=== PATIENT | female | born 1960 | race African-American/Black ===

== ENCOUNTER 2016-10-17 20:08 | Emergency (ER) | payer MEDICAID ==
[~2016-10-17] VITALS: Ht 160 cm; Wt 85.0 kg
[~2016-10-17 20:08] MED LIST: AMLO5TAB2 PO; AUGM875T PO; LIPI40TA PO; OXYC-395 PO; VENTAER INH
[2016-10-17 20:11] VITALS: BP 158/92; PULSE 95; RESP 16; TEMP 98.2; O2SAT 86
[2016-10-17] MEDS ORDERED: SODIUM CHLOR 0.9% 1000 ML INJ 1,000 ML IV SCH (20:21)
[2016-10-17] MEDS ORDERED: ONDANSETRON HCL 4 MG/2 ML VIAL IVP ONE (20:30)
[2016-10-17] MEDS ORDERED: MORPHINE SULFATE 4 MG/ML INJ IV PUSH ONE (20:30)
--- NOTE | 2016-10-17 20:48 | PD ---
HPI Chief Complaint: Abdominal Pain Time Seen by Provider: 20:45 Travel History International Travel<30 days: No Contact w/Intl Traveler<30days: No Traveled to known affect area: No History of Present Illness HPI 56-year-old female that presents to the ED for evaluation of left abdominal pain. Patient reports that she's had this for 2 days. Per patient yesterday sternum and lower abdomen any movement to the left mid flank. Per patient it severe. Per patient the pain is 8 out of 10. She denies any nausea or vomiting. She denies any bowel movement or urinary issues. She does tell me that she does have a significant history of diverticulitis with abscess in the past for which the doctor eventually wanted to do a resection but she apparently refused that she was managed medically. Per patient she has had no fevers chills or sweats. No chest pain or shortness of breath. Per patient she is concerned that she did ate some oranges recently and she believes that she got bit of all the seeds but now she is concerned that she might have not and this is the cause of her pain. She denies any numbness, tilling, weakness. She has not seen anybody for this. No recent travel. No blood thinners. No bleeding. PFSH Past Medical History Hx Anticoagulant Therapy: Yes (PT STATES SHE TAKES ASPIRIN "SOMETIMES") Arthritis: Yes Asthma: Yes Autoimmune Disease: No Blood Disorders: No Heart Rhythm Problems: No Cancer: Yes (UTERUS) Cardiovascular Problems: Yes (HI) High Cholesterol: Yes Chemotherapy: No Chest Pain: Yes Congestive Heart Failure: Yes COPD: Yes Cerebrovascular Accident: No Diabetes: No Diminished Hearing: No Endocrine: No Gastrointestinal Disorders: Yes GERD: No Glaucoma: No Genitourinary: Yes (KIDNEY STONES) Hepatitis: No Hiatal Hernia: No Hypertension: Yes Immune Disorder: No Kidney Stones: Yes Musculoskeletal: Yes Neurologic: Yes Psychiatric: No Reproductive: Yes (HYSTERECTOMY W/ LEFT OOPHERECTOMY) Respiratory: Yes (COPD) Immunizations Current: Yes Myocardial Infarction: Yes (2003) Radiation Therapy: No Sickle Cell Disease: No Sleep Apnea: No Thyroid Disease: No Ulcer: No Tetanus Vaccination: < 5 Years Menopausal: Yes Past Surgical History Abdominal Surgery: Yes (GALLBLADDER REMOVED) AICD: No Cardiac Surgery: No Cholecystectomy: Yes Ear Surgery: No Endocrine Surgery: No Eye Surgery: No Genitourinary Surgery: Yes (LITHOTRIPSY) Gynecologic Surgery: Yes (PARTIAL HYSTERECTOMY W/ LEFT OOPHERECTOMY) Hysterectomy: Yes (PARTIAL ) Neurologic Surgery: No Oral Surgery: No Pacemaker: No Thoracic Surgery: No Other Surgery: Yes Social History Alcohol Use: Yes (OCASSIONALLY) Tobacco Use: Yes (1PPD) Substance Use: No Allergies-Medications (Allergen,Severity, Reaction): Coded Allergies: Ibuprofen (Verified Allergy, Unknown, rash, 10/17/16) Reported Meds & Prescriptions Reported Meds & Active Scripts Active Lortab (Hydrocodone-Acetaminophen) 5-325 Mg Tab 1 Tab PO Q6H PRN Zofran (Ondansetron HCl) 4 Mg Tab 4 Mg PO Q6HR PRN Flagyl (Metronidazole) 500 Mg Tab 500 Mg PO TID 10 Days Cipro (Ciprofloxacin HCl) 500 Mg Tab 500 Mg PO BID 10 Days Reported Oxycodone (Oxycodone HCl) 10 Mg Tab 10 Mg PO Q4H PRN Lipitor (Atorvastatin Calcium) 40 Mg Tab 40 Mg PO HS Amlodipine (Amlodipine Besylate) 5 Mg Tab 5 Mg PO DAILY Ventolin Hfa 18 GM Inh (Albuterol Sulfate) 90 Mcg/Act Aer 2 Puff INH Q4H PRN Review of Systems Except as stated in HPI: all other systems reviewed are Neg Physical Exam Narrative GENERAL: SKIN: Warm and dry. HEAD: Atraumatic. Normocephalic. EYES: Pupils equal and round. No scleral icterus. No injection or drainage. ENT: No nasal bleeding or discharge. Mucous membranes pink and moist. Tongue is midline. No uvula deviation. NECK: Trachea midline. No JVD. CARDIOVASCULAR: Regular rate and rhythm. RESPIRATORY: No accessory muscle use. Clear to auscultation. Breath sounds equal bilaterally. GASTROINTESTINAL: Abdomen soft, patient has reproducible pain on the left lower quadrant of the abdomen, nondistended. Hepatic and splenic margins not palpable. MUSCULOSKELETAL: Extremities without clubbing, cyanosis, or edema. No obvious deformities. NEUROLOGICAL: Awake and alert. No obvious cranial nerve deficits. Motor grossly within normal limits. Five out of 5 muscle strength in the arms and legs. Normal speech. PSYCHIATRIC: Appropriate mood and affect; insight and judgment normal. Data Data Last Documented VS Vital Signs Date Time Temp Pulse Resp B/P Pulse Ox O2 Delivery O2 Flow Rate FiO2 10/17/16 20:32 16 10/17/16 20:11 98.2 95 158/92 86 Room Air Orders Complete Blood Count With Diff (10/17/16 20:21) Comprehensive Metabolic Panel (10/17/16 20:21) Lipase (10/17/16 20:21) Lactic Acid (10/17/16 20:21) Prothrombin Time / Inr (Pt) (10/17/16 20:21) Act Partial Throm Time (Ptt) (10/17/16 20:21) Urinalysis - C+S If Indicated (10/17/16 20:21) Ct Abd/Pel W Iv Contrast(Rout) (10/17/16 20:21) Iv Access Insert/Monitor (10/17/16 20:21) Morphine Inj (Morphine Inj) (10/17/16 20:30) Ondansetron Inj (Zofran Inj) (10/17/16 20:30) Sodium Chlor 0.9% 1000 Ml Inj (Ns 1000 M (10/17/16 20:21) Iohexol 350 Inj (Omnipaque 350 Inj) (10/17/16 21:34) Metronidazole 500 Mg Inj (Flagyl 500 Mg (10/17/16 22:15) Ciprofloxacin 200 Mg Premix (Cipro 200 M (10/17/16 22:15) Labs Laboratory Tests Test 10/17/16 20:40 White Blood Count 8.5 TH/MM3 Red Blood Count 4.95 MIL/MM3 Hemoglobin 15.2 GM/DL Hematocrit 44.7 % Mean Corpuscular Volume 90.4 FL Mean Corpuscular Hemoglobin 30.8 PG Mean Corpuscular Hemoglobin 34.1 % Concent Red Cell Distribution Width 14.8 % Platelet Count 263 TH/MM3 Mean Platelet Volume 9.3 FL Neutrophils (%) (Auto) 69.1 % Lymphocytes (%) (Auto) 21.3 % Monocytes (%) (Auto) 8.5 % Eosinophils (%) (Auto) 0.3 % Basophils (%) (Auto) 0.8 % Neutrophils # (Auto) 5.9 TH/MM3 Lymphocytes # (Auto) 1.8 TH/MM3 Monocytes # (Auto) 0.7 TH/MM3 Eosinophils # (Auto) 0.0 TH/MM3 Basophils # (Auto) 0.1 TH/MM3 CBC Comment DIFF FINAL Differential Comment Prothrombin Time 10.7 SEC Prothromb Time International 1.0 RATIO Ratio Activated Partial 25.4 SEC Thromboplast Time Sodium Level 137 MEQ/L Potassium Level 4.1 MEQ/L Chloride Level 104 MEQ/L Carbon Dioxide Level 27.0 MEQ/L Anion Gap 6 MEQ/L Blood Urea Nitrogen 23 MG/DL Creatinine 1.36 MG/DL Estimat Glomerular Filtration 48 ML/MIN Rate Random Glucose 107 MG/DL Lactic Acid Level 1.3 mmol/L Calcium Level 8.6 MG/DL Total Bilirubin 0.3 MG/DL Aspartate Amino Transf 12 U/L (AST/SGOT) Alanine Aminotransferase 27 U/L (ALT/SGPT) Alkaline Phosphatase 94 U/L Total Protein 8.3 GM/DL Albumin 3.9 GM/DL Lipase 150 U/L MDM Medical Decision Making Medical Screen Exam Complete: Yes Emergency Medical Condition: Yes Medical Record Reviewed: Yes Interpretation(s) CBC & BMP Diagram 10/17/16 20:40 Differential Diagnosis Abdominal pain versus diverticulitis versus abscess versus perforation versus pancreatitis versus acute abdomen Narrative Course 48-year-old female that presents to the ED for evaluation of abdominal pain. Patient was properly examined and was found to have signs and symptoms consistent appears to be abdominal pain. Concerning for diverticulitis. Labs and imaging ordered. Patient was started on IV antibiotics. Fluids given. Patient agrees first to proceed with plan. Labs and imaging showed signs of diverticulitis. Patient was reassured. No sign of abscess or perforation. Case discussed in my attending who evaluated the patient with me and agrees with plan. Patient will be given first dose of IV Cipro and Flagyl here. Patient will be sent home with prescription for Zofran, Flagyl, Cipro. Patient was given Lortab for pain. Told to follow up with PCP. See ED for any worsening symptoms. Diagnosis Primary Impression: Diverticulitis Qualified Code: K57.32 - Diverticulitis of large intestine without perforation or abscess without bleeding Patient Instructions: General Instructions, Narcotic given in the ED Additional Instructions: Take medication as prescribed. Liquid diet until better. Follow with PCP. See ED for any worsening symptoms. Med/Other Pt SpecificInfo: Prescription(s) given Scripts Hydrocodone-Acetaminophen (Lortab)5-325 Mg Tab1 Tab PO Q6H PRN (PAIN) #10 TAB Prov:Meghna Solis MD 10/17/16 Ondansetron (Zofran)4 Mg Tab4 Mg PO Q6HR PRN (NAUSEA OR VOMITING) #20 TAB Prov:Meghna Solis MD 10/17/16 Metronidazole (Flagyl)500 Mg [id number] Mg PO TID 10 Days Ref 0 Prov:Meghna Solis MD 10/17/16 Ciprofloxacin (Cipro)500 Mg [id number] Mg PO BID 10 Days Prov:Meghna Solis MD 10/17/16 Disposition: 01 DISCHARGE HOME Condition: Stable Jason Arthur Oct 17, 2016 20:48
[2016-10-17 20:49] LABS: AUTOMATED NEUTROPHIL # 5.9 TH/MM3 (1.8-7.7); BASOPHIL # 0.1 TH/MM3 (0-0.2); BASOPHIL % 0.8 % (0.0-2.0); EOSINOPHIL % 0.3 % (0.0-4.0); HEMATOCRIT 44.7 % (35.0-46.0); HEMO FLAGS DIFF FINAL; LYMPH % 21.3 % (9.0-44.0); LYMPHOCYTE # 1.8 TH/MM3 (1.0-4.8); MEAN CELL VOLUME 90.4 FL (80.0-100.0); MEAN CORPUSCULAR HEMOGLOBIN 30.8 PG (27.0-34.0); MEAN CORPUSCULAR HGB CONC 34.1 % (32.0-36.0); MONO % 8.5 % (0.0-8.0); NEUT % 69.1 % (16.0-70.0); PLATELET COUNT 263 TH/MM3 (150-450); RED BLOOD COUNT 4.95 MIL/MM3 (4.00-5.30); RED CELL DISTRIBUTION WIDTH 14.8 % (11.6-17.2); WHITE BLOOD COUNT 8.5 TH/MM3 (4.0-11.0)
[2016-10-17 21:06] LABS: APTT (PATIENT) 25.4 SEC (24.3-30.1); PROTHROMBIN TIME - PATIENT 10.7 SEC (9.8-11.6)
[2016-10-17 21:16] LABS: ANION GAP 6 MEQ/L (5-15); AST (GOT) 12 U/L (15-37); BLOOD UREA NITROGEN 23 MG/DL (7-18); CHLORIDE 104 MEQ/L (98-107); GLOMERULAR FILTRATION RATE 48 ML/MIN (>89); POTASSIUM 4.1 MEQ/L (3.5-5.1); SODIUM (NA) 137 MEQ/L (136-145)
[2016-10-17 21:19] LABS: ALKALINE PHOSPHATASE 94 U/L (45-117); ALT (GPT) 27 U/L (10-53); TOTAL BILIRUBIN ADULT 0.3 MG/DL (0.2-1.0)
[2016-10-17] MEDS ORDERED: IOHEXOL 350 MG/ML 10 ML VIAL (for RAD DIAG) IV ONE (21:34)
--- NOTE | 2016-10-17 21:52 | RADRPT ---
EXAM DATE/TIME: 10/17/2016 21:33 [facility] COMPARISON: CT ABDOMEN & PELVIS W CONTRAST, May 10, 2014, 19:06. CT ABDOMEN & PELVIS W/O CONTRAST, December 21, 2014, 17:28. INDICATIONS : Left-sided abdominal pain. IV CONTRAST: 97 cc Omnipaque 350 (iohexol) IV ORAL CONTRAST: No oral contrast ingested. RADIATION DOSE: 13.22 CTDIvol (mGy) MEDICAL HISTORY : Hypertension. Chronic obstructive pulmonary disease. Compression fracture.Uterine cancer. SURGICAL HISTORY : Hysterectomy. Cholecystectomy. ENCOUNTER: Initial ACUITY: 1 day PAIN SCALE: 0/10 LOCATION: Bilateral upper quadrant TECHNIQUE: Volumetric scanning of the abdomen and pelvis was performed. Using automated exposure control and ad justment of the mA and/or kV according to patient size, radiation dose was kept as low as reasonably achievable to obtain optimal diagnostic quality images. FINDINGS: CT Abdomen: The liver, spleen, pancreas, kidneys, are unremarkable. There is no evidence for any appr eciable pathological adenopathy, free fluid, or bowel obstruction. There is an approximate 2.2 cm mas s in the right adrenal gland and 2.9 cm mass in the left adrenal gland low attenuating. There are num erous diverticuli in the patient's descending colon with an area of acute diverticulitis in the desce nding colon just past the splenic flexure with inflammation extending to the Gerota's fascia. There i s no abscess or perforation. CT pelvis: There is no evidence for mass, abscess formation, or any significant adenopathy within the pelvis. The appendix appears intact without definite signs of appendicitis. CONCLUSION: 1. Acute diverticulitis of the descending colon. 2. Bilateral adrenal masses not significantly changed characteristic of adenomas. Lilibeth Momin MD on October 17, 2016 at 21:45 Board Certified Radiologist. This report was verified electronically.
[2016-10-17] MEDS ORDERED: ZOFR4TAB PO (22:10)
[2016-10-17] MEDS ORDERED: METR-1 PO (22:10)
[2016-10-17] MEDS ORDERED: HYDR-3533 PO (22:10)
[2016-10-17] MEDS ORDERED: CIPR-9 PO (22:10)
[2016-10-17] MEDS ORDERED: CIPROFLOXACIN 200 MG PREMIX 100 ML IV ONE (22:15)
[2016-10-17] MEDS ORDERED: metroNIDAZOLE 500 MG INJ 100 ML IV ONE (22:15)
[2016-10-17 22:29] VITALS: BP 134/81; PULSE 76; RESP 17; O2SAT 99
--- NOTE | 2016-10-17 22:42 | PD ---
Data Data Last Documented VS Vital Signs Date Time Temp Pulse Resp B/P Pulse Ox O2 Delivery O2 Flow Rate FiO2 10/17/16 22:29 76 17 134/81 99 Room Air 10/17/16 20:11 98.2 Orders Complete Blood Count With Diff (10/17/16 20:21) Comprehensive Metabolic Panel (10/17/16 20:21) Lipase (10/17/16 20:21) Lactic Acid (10/17/16 20:21) Prothrombin Time / Inr (Pt) (10/17/16 20:21) Act Partial Throm Time (Ptt) (10/17/16 20:21) Urinalysis - C+S If Indicated (10/17/16 20:21) Ct Abd/Pel W Iv Contrast(Rout) (10/17/16 20:21) Iv Access Insert/Monitor (10/17/16 20:21) Morphine Inj (Morphine Inj) (10/17/16 20:30) Ondansetron Inj (Zofran Inj) (10/17/16 20:30) Sodium Chlor 0.9% 1000 Ml Inj (Ns 1000 M (10/17/16 20:21) Iohexol 350 Inj (Omnipaque 350 Inj) (10/17/16 21:34) Metronidazole 500 Mg Inj (Flagyl 500 Mg (10/17/16 22:15) Ciprofloxacin 200 Mg Premix (Cipro 200 M (10/17/16 22:15) Labs Laboratory Tests Test 10/17/16 20:40 White Blood Count 8.5 TH/MM3 Red Blood Count 4.95 MIL/MM3 Hemoglobin 15.2 GM/DL Hematocrit 44.7 % Mean Corpuscular Volume 90.4 FL Mean Corpuscular Hemoglobin 30.8 PG Mean Corpuscular Hemoglobin 34.1 % Concent Red Cell Distribution Width 14.8 % Platelet Count 263 TH/MM3 Mean Platelet Volume 9.3 FL Neutrophils (%) (Auto) 69.1 % Lymphocytes (%) (Auto) 21.3 % Monocytes (%) (Auto) 8.5 % Eosinophils (%) (Auto) 0.3 % Basophils (%) (Auto) 0.8 % Neutrophils # (Auto) 5.9 TH/MM3 Lymphocytes # (Auto) 1.8 TH/MM3 Monocytes # (Auto) 0.7 TH/MM3 Eosinophils # (Auto) 0.0 TH/MM3 Basophils # (Auto) 0.1 TH/MM3 CBC Comment DIFF FINAL Differential Comment Prothrombin Time 10.7 SEC Prothromb Time International 1.0 RATIO Ratio Activated Partial 25.4 SEC Thromboplast Time Sodium Level 137 MEQ/L Potassium Level 4.1 MEQ/L Chloride Level 104 MEQ/L Carbon Dioxide Level 27.0 MEQ/L Anion Gap 6 MEQ/L Blood Urea Nitrogen 23 MG/DL Creatinine 1.36 MG/DL Estimat Glomerular Filtration 48 ML/MIN Rate Random Glucose 107 MG/DL Lactic Acid Level 1.3 mmol/L Calcium Level 8.6 MG/DL Total Bilirubin 0.3 MG/DL Aspartate Amino Transf 12 U/L (AST/SGOT) Alanine Aminotransferase 27 U/L (ALT/SGPT) Alkaline Phosphatase 94 U/L Total Protein 8.3 GM/DL Albumin 3.9 GM/DL Lipase 150 U/L MDM Supervised Visit with TAZ: Yes Narrative Course The history, exam, and medical decision-making in the associated midlevel provider note were completed with my assistance. I reviewed and agree with the findings presented. I attest that I had a [id number] encounter with the patient on the same day, and personally performed and documented my assessment and findings in the medical record. *My assessment and Findings: this is a 56-year-old female who has a history of diverticulitis with diverticular abscess who presents to the emergency department with left lower quadrant abdominal pain. She is nontoxic appearing, afebrile with no leukocytosis. She has a benign abdomen with some tenderness in the left lower quadrant but no guarding. CT confirms diverticulitis. Patient would prefer a trial of outpatient management with antibiotics and clear liquid diet. She promises to return if she develops new or worsening symptoms. Diagnosis Primary Impression: Diverticulitis Qualified Code: K57.32 - Diverticulitis of large intestine without perforation or abscess without bleeding Patient Instructions: General Instructions, Narcotic given in the ED Additional Instruction: Take medication as prescribed. Liquid diet until better. Follow with PCP. See ED for any worsening symptoms. Scripts Hydrocodone-Acetaminophen (Lortab)5-325 Mg Tab1 Tab PO Q6H PRN (PAIN) #10 TAB Prov:Meghna Solis MD 10/17/16 Ondansetron (Zofran)4 Mg Tab4 Mg PO Q6HR PRN (NAUSEA OR VOMITING) #20 TAB Prov:Meghna Solis MD 10/17/16 Metronidazole (Flagyl)500 Mg [id number] Mg PO TID 10 Days Ref 0 Prov:Meghna Solis MD 10/17/16 Ciprofloxacin (Cipro)500 Mg [id number] Mg PO BID 10 Days Prov:Meghna Solis MD 10/17/16 Disposition: 01 DISCHARGE HOME Condition: Stable Meghna Solis MD Oct 17, 2016 22:42
[2016-10-17 22:45] LABS: BACTERIA, URINE OCC /hpf; BLOOD, URINE NEG (NEG); COMMENT (UR) CULTURE INDICATED; CULTURE IF INDICATED CULTURE INDICATED; GLUCOSE,URINE NEG (NEG); HYALINE CAST, URINE 1 /lpf (RARE); KETONE, URINE NEG (NEG); NITRITE,URINE NEG (NEG); PH, URINE 6.5 (5.0-8.5); SQUAMOUS EPITHELIAL CELL URINE 5 /hpf (0-5); URINE COLOR LIGHT-YELLOW (YELLW/STRAW)
== END 2016-10-17 23:47 | disposition home or self-care (01) ==
LOC: NEPC 20:08
DX: K57.32 Diverticulitis of large intestine without perforation or abscess without bleeding (principal); J45.909 Unspecified asthma, uncomplicated; E78.00 Pure hypercholesterolemia, unspecified; J44.9 Chronic obstructive pulmonary disease, unspecified; I10 Essential (primary) hypertension; F17.210 Nicotine dependence, cigarettes, uncomplicated; B96.20 Unspecified Escherichia coli [E. coli] as the cause of diseases classified elsewhere
CPT/HCPCS: 74177; 80053; 81001; 83605; 83690; 85025; 85610; 85730; 87077; 87086; 87186; 96361; 96365; 96368; 96375; 99284; J0744; J2270; J2405; J7030; Q9967

== ENCOUNTER 2017-12-04 12:45 | Emergency (ER) | payer MEDICAID ==
[~2017-12-04] VITALS: Ht 160 cm; Wt 90.0 kg
[~2017-12-04 12:45] MED LIST changes: -AUGM875T PO; +CIPR-9 PO; +HYDR-3533 PO; +METR-1 PO; +ZOFR4TAB PO
[2017-12-04] MEDS ORDERED: IOHEXOL 350 MG/ML 10 ML VIAL (for RAD DIAG) IVCONTRAST ONE (12:46)
[2017-12-04 13:00] VITALS: BP 175/83; PULSE 96; RESP 24; TEMP 100.2; O2SAT 96
--- NOTE | 2017-12-04 14:31 | PD ---
HPI Chief Complaint: Respiratory Symptoms Time Seen by Provider: 13:48 Travel History International Travel<30 days: No Contact w/Intl Traveler<30days: No Traveled to known affect area: No History of Present Illness HPI The patient is a 57-year-old [place] female who presents emergency department for shortness of breath. The patient notes a three-day history of increasing shortness of breath, bilateral pleuritic pain, and dry nonproductive cough. The patient does have a history of COPD, is not currently on steroids. The patient also complains of subjective fever, chills, and sweats. She does note some right lateral and left lateral chest wall pain with inspiration, coughing, that is sharp and pleuritic. She denies any nausea, vomiting, diarrhea, or abdominal pain. She did not receive an influenza vaccination this year. She does have a history of COPD and tobacco use, last cigarette was 3 days ago. Patient has a previous history of pulmonary embolism after she had knee surgery several years ago, is not currently anticoagulated. The patient states that she had a heart attack after her pulmonary embolism, however, is unsure if she has any history congestive heart failure. PFSH Past Medical History Hx Anticoagulant Therapy: Yes (PT STATES SHE TAKES ASPIRIN "SOMETIMES") Arthritis: Yes Asthma: Yes Autoimmune Disease: No Blood Disorders: No Heart Rhythm Problems: No Cancer: Yes (UTERUS) Cardiovascular Problems: Yes High Cholesterol: Yes Chemotherapy: No Chest Pain: Yes Congestive Heart Failure: Yes COPD: Yes Cerebrovascular Accident: No Diabetes: No Diminished Hearing: No Endocrine: No Gastrointestinal Disorders: Yes GERD: No Glaucoma: No Genitourinary: Yes (KIDNEY STONES) Hepatitis: No Hiatal Hernia: No Hypertension: Yes Immune Disorder: No Kidney Stones: Yes Musculoskeletal: Yes Neurologic: Yes Psychiatric: No Reproductive: Yes (HYSTERECTOMY W/ LEFT OOPHERECTOMY) Respiratory: Yes Immunizations Current: Yes Myocardial Infarction: Yes (2003) Radiation Therapy: No Sickle Cell Disease: No Sleep Apnea: No Thyroid Disease: No Ulcer: No ?: Not Menopausal: Yes Past Surgical History Abdominal Surgery: Yes (GALLBLADDER REMOVED) AICD: No Cardiac Surgery: No Cholecystectomy: Yes Ear Surgery: No Endocrine Surgery: No Eye Surgery: No Genitourinary Surgery: Yes (LITHOTRIPSY) Gynecologic Surgery: Yes (PARTIAL HYSTERECTOMY W/ LEFT OOPHERECTOMY) Hysterectomy: Yes (PARTIAL ) Neurologic Surgery: No Oral Surgery: No Pacemaker: No Thoracic Surgery: No Other Surgery: Yes Social History Alcohol Use: Yes (OCASSIONALLY) Tobacco Use: Yes (1PPD) Substance Use: No Allergies-Medications (Allergen,Severity, Reaction): Coded Allergies: ibuprofen (Unverified Allergy, Unknown, rash, 05/05/17) Reported Meds & Prescriptions Reported Meds & Active Scripts Active Lortab (Hydrocodone-Acetaminophen) 5-325 Mg Tab 1 Tab PO Q6H PRN Zofran (Ondansetron HCl) 4 Mg Tab 4 Mg PO Q6HR PRN Flagyl (Metronidazole) 500 Mg Tab 500 Mg PO TID 10 Days Cipro (Ciprofloxacin HCl) 500 Mg Tab 500 Mg PO BID 10 Days Reported Oxycodone (Oxycodone HCl) 10 Mg Tab 10 Mg PO Q4H PRN Lipitor (Atorvastatin Calcium) 40 Mg Tab 40 Mg PO HS Amlodipine (Amlodipine Besylate) 5 Mg Tab 5 Mg PO DAILY Ventolin Hfa 18 GM Inh (Albuterol Sulfate) 90 Mcg/Act Aer 2 Puff INH Q4H PRN Review of Systems Except as stated in HPI: all other systems reviewed are Neg General / Constitutional: Positive: Fever, Chills HENT: No: Congestion Cardiovascular: Positive: Chest Pain or Discomfort Respiratory: Positive: Cough, Shortness of Breath, Pleuritic Pain Gastrointestinal: No: Nausea, Vomiting Musculoskeletal: Positive: Myalgias, Cramping Neurologic: No: Paresthesia, Sensory Disturbance Physical Exam Narrative GENERAL: Awake, alert, 57-year-old female who appears her stated age and is in no acute respiratory distress. SKIN: Focused skin assessment warm/dry. HEAD: Atraumatic. Normocephalic. Hair piece in place. EYES: No injection or drainage. ENT: No erythema noted. NECK: Trachea midline. No JVD. CARDIOVASCULAR: Regular rate and rhythm. No murmur appreciated. RESPIRATORY: No accessory muscle use. Respiratory rate of 22. Prolonged expiratory phase with no wheezes. GASTROINTESTINAL: Abdomen soft, non-tender, nondistended. No rebound tenderness. MUSCULOSKELETAL: No obvious deformities. No clubbing. No cyanosis. No edema. NEUROLOGICAL: Awake and alert. No obvious cranial nerve deficits. Motor grossly within normal limits. Normal speech. PSYCHIATRIC: Appropriate mood and affect; insight and judgment normal. Data Data Last Documented VS Vital Signs Date Time Temp Pulse Resp B/P (MAP) Pulse Ox O2 Delivery O2 Flow Rate FiO2 12/04/17 16:18 85 17 145/74 (97) 92 Room Air 12/04/17 14:36 2.00 12/04/17 13:00 100.2 Orders Orders Complete Blood Count With Diff (12/04/17 13:13) Basic Metabolic Panel (Bmp) (12/04/17 13:13) Chest, Pa & Lat (12/04/17 13:13) Blood Culture (12/04/17 13:13) Iv Access Insert/Monitor (12/04/17 13:13) Ecg Monitoring (12/04/17 13:13) Oxygen Administration (12/04/17 13:13) Oximetry (12/04/17 13:13) Electrocardiogram (12/04/17 13:13) Hepatic Functional Panel (12/04/17 14:13) B-Type Natriuretic Peptide (12/04/17 14:13) Lactic Acid (12/04/17 14:13) Influenzae A/B Antigen (12/04/17 14:13) Troponin I (12/04/17 14:13) Creatine Kinase (Cpk) (12/04/17 14:13) Ct Pulmonary Angiogram (12/04/17 ) Albuterol-Ipratropium Neb (Duoneb Neb) (12/04/17 14:45) Methylprednisolone So Succ Inj (Solumedr (12/04/17 14:45) Iohexol 350 Inj (Omnipaque 350 Inj) (12/04/17 12:46) Levofloxacin 500 Mg Premix Inj (Levaquin (12/04/17 17:30) Albuterol-Ipratropium Neb (Duoneb Neb) (12/04/17 17:30) Morphine Inj (Morphine Inj) (12/04/17 17:30) Ondansetron Inj (Zofran Inj) (12/04/17 17:30) Ed Discharge Order (12/04/17 17:23) Labs Laboratory Tests Test 12/04/17 14:40 White Blood Count 6.3 TH/MM3 Red Blood Count 4.56 MIL/MM3 Hemoglobin 14.7 GM/DL Hematocrit 41.6 % Mean Corpuscular Volume 91.2 FL Mean Corpuscular Hemoglobin 32.2 PG Mean Corpuscular Hemoglobin Concent 35.3 % Red Cell Distribution Width 14.0 % Platelet Count 226 TH/MM3 Mean Platelet Volume 9.2 FL Neutrophils (%) (Auto) 85.6 % Lymphocytes (%) (Auto) 4.8 % Monocytes (%) (Auto) 7.9 % Eosinophils (%) (Auto) 0.0 % Basophils (%) (Auto) 1.7 % Neutrophils # (Auto) 5.4 TH/MM3 Lymphocytes # (Auto) 0.3 TH/MM3 Monocytes # (Auto) 0.5 TH/MM3 Eosinophils # (Auto) 0.0 TH/MM3 Basophils # (Auto) 0.1 TH/MM3 CBC Comment DIFF FINAL Differential Comment Blood Urea Nitrogen 10 MG/DL Creatinine 0.87 MG/DL Random Glucose 99 MG/DL Calcium Level 8.5 MG/DL Sodium Level 138 MEQ/L Potassium Level 3.9 MEQ/L Chloride Level 103 MEQ/L Carbon Dioxide Level 26.3 MEQ/L Anion Gap 9 MEQ/L Estimat Glomerular Filtration Rate 81 ML/MIN Lactic Acid Level 1.7 mmol/L B-Type Natriuretic Peptide 61 PG/ML MDM Medical Decision Making Medical Screen Exam Complete: Yes Emergency Medical Condition: Yes Medical Record Reviewed: Yes Interpretation(s) EKG reveals normal sinus rhythm with a rate 88. RSR prime in V1. Last Impressions Chest X-Ray 12/04/17 1313 Signed Impressions: Service Date/Time: Monday, December 04, 2017 13:27 - CONCLUSION: 1. Mild central pulmonary vascular congestion. 2. Cardiovascular Bladimir Guerrero MD CT Angiography 12/04/17 0000 Signed Impressions: Service Date/Time: Monday, December 04, 2017 16:35 - CONCLUSION: 1. No evidence of pulmonary embolism. 2. AP window and subcarinal mediastinal as well as right hilar lymphadenopathy is noted and is nonspecific. Infectious, inflammatory and neoplastic etiologies should be considered. 3. Minimal posterior atelectatic changes bilaterally. 4. Cardiomegaly. 5. Uncomplicated colonic diverticulosis. 6. Nodule arising from the left lobe of the thyroid which is incompletely evaluated on this examination. Ultrasound would be helpful for further evaluation of this nodule. Bladimir Guerrero MD Laboratory Tests Test 12/04/17 14:40 White Blood Count 6.3 TH/MM3 Red Blood Count 4.56 MIL/MM3 Hemoglobin 14.7 GM/DL Hematocrit 41.6 % Mean Corpuscular Volume 91.2 FL Mean Corpuscular Hemoglobin 32.2 PG Mean Corpuscular Hemoglobin Concent 35.3 % Red Cell Distribution Width 14.0 % Platelet Count 226 TH/MM3 Mean Platelet Volume 9.2 FL Neutrophils (%) (Auto) 85.6 % Lymphocytes (%) (Auto) 4.8 % Monocytes (%) (Auto) 7.9 % Eosinophils (%) (Auto) 0.0 % Basophils (%) (Auto) 1.7 % Neutrophils # (Auto) 5.4 TH/MM3 Lymphocytes # (Auto) 0.3 TH/MM3 Monocytes # (Auto) 0.5 TH/MM3 Eosinophils # (Auto) 0.0 TH/MM3 Basophils # (Auto) 0.1 TH/MM3 CBC Comment DIFF FINAL Differential Comment Blood Urea Nitrogen 10 MG/DL Creatinine 0.87 MG/DL Random Glucose 99 MG/DL Calcium Level 8.5 MG/DL Sodium Level 138 MEQ/L Potassium Level 3.9 MEQ/L Chloride Level 103 MEQ/L Carbon Dioxide Level 26.3 MEQ/L Anion Gap 9 MEQ/L Estimat Glomerular Filtration Rate 81 ML/MIN Lactic Acid Level 1.7 mmol/L B-Type Natriuretic Peptide 61 PG/ML Differential Diagnosis Differential diagnosis includes pneumonia, bronchitis, COPD exacerbation, pulmonary embolism, congestive heart failure, pleural effusion, pulmonary edema , influenza, viral syndrome. Narrative Course IV was established, labs are drawn and sent, and the patient was placed on cardiac telemetry monitoring and continuous pulse oximetry monitoring. EKG was ordered and interpreted. Chest x-ray was obtained. CT pulmonary angiogram was ordered. The patient received Solu-Medrol 125 mg intravenously and duo nebs. Chest x-rays unremarkable. White count is normal. Lactic acid is normal. BNP is unremarkable. The patient complained of bodyaches over the body, influenza screen was checked, however, was negative. The patient received morphine for her pain, was administered another DuoNeb and Levaquin 500 mg intravenously. Patient appears to have COPD exacerbation with acute bronchitis and will be placed on inhaler, steroids, and Levaquin. She will be provided a copy of her CT results and lab results at discharge. She is advised to follow-up with her primary physician. Return if symptoms worsen or progress. Diagnosis Primary Impression: COPD exacerbation Additional Impressions: Bronchitis Dyspnea Qualified Codes: R06.00 - Dyspnea, unspecified Myalgia Patient Instructions: General Instructions Additional Instructions: Please provide a patient a copy of her CT results and lab results at discharge. Medications as directed. Follow-up with your primary physician. Return if symptoms worsen or progress. Med/Other Pt SpecificInfo: Prescription(s) given Scripts Albuterol 8.5 GM Inh (Proair Hfa 8.5 GM Inh) 90 Mcg/Act Aer 2 PUFF INH Q6H Y for SHORTNESS OF BREATH, #1 INHALER 0 Refills 108 mcg/actuation Prov: Cesar Eason MD 12/04/17 Levofloxacin (Levaquin) 500 Mg Tablet 500 MG PO DAILY for Infection for 7 Days, #7 TAB 0 Refills Prov: Cesar Eason MD 12/04/17 Prednisone (Prednisone) 20 Mg Tab 40 MG PO DAILY for 5 Days, #10 TAB 0 Refills Take 40 mg (2 tablets) daily for 5 days Prov: Cesar Eason MD 12/04/17 Disposition: 01 DISCHARGE HOME Condition: Stable Cesar Eason MD Dec 04, 2017 14:31
--- NOTE | 2017-12-04 14:35 | RADRPT ---
EXAM DATE/TIME: 12/04/2017 13:27 [facility] COMPARISON: No previous studies available for comparison. INDICATIONS : Chest pain. MEDICAL HISTORY : Myocardial infarction. Emphysema. SURGICAL HISTORY : None. ENCOUNTER: Initial ACUITY: 1 day PAIN SCORE: 10/10 LOCATION: Bilateral chest FINDINGS: The heart is enlarged. Mild central pulmonary vascular congestion is noted. No focal alveolar consoli dation is noted CONCLUSION: 1. Mild central pulmonary vascular congestion. 2. Cardiovascular Bladimir Guerrero MD on December 04, 2017 at 14:33 Board Certified Radiologist. This report was verified electronically.
[2017-12-04 14:36] VITALS: BP 154/76; PULSE 85; RESP 18; O2SAT 96
[2017-12-04] MEDS ORDERED: RESP: ALBUTEROL 2.5 MG/IPRATROPIUM 0.5 MG NEB (SCH) NEB ONE ×2 (14:45→17:30)
[2017-12-04] MEDS ORDERED: methylPREDNISolone SOD SUCC 125 MG/2 ML VIAL IV PUSH ONE (14:45)
[2017-12-04 15:09] LABS: AUTOMATED NEUTROPHIL # 5.4 TH/MM3 (1.8-7.7); BASOPHIL # 0.1 TH/MM3 (0-0.2); BASOPHIL % 1.7 % (0.0-2.0); HEMATOCRIT 41.6 % (35.0-46.0); HEMOGLOBIN 14.7 GM/DL (11.6-15.3); LYMPH % 4.8 % (9.0-44.0); LYMPHOCYTE # 0.3 TH/MM3 (1.0-4.8); MEAN CELL VOLUME 91.2 FL (80.0-100.0); MEAN CORPUSCULAR HEMOGLOBIN 32.2 PG (27.0-34.0); MEAN CORPUSCULAR HGB CONC 35.3 % (32.0-36.0); MEAN PLATELET VOLUME 9.2 FL (7.0-11.0); MONO % 7.9 % (0.0-8.0); MONOCYTE # 0.5 TH/MM3 (0-0.9); NEUT % 85.6 % (16.0-70.0); PLATELET COUNT 226 TH/MM3 (150-450); RED BLOOD COUNT 4.56 MIL/MM3 (4.00-5.30); WHITE BLOOD COUNT 6.3 TH/MM3 (4.0-11.0)
[2017-12-04 15:33] LABS: BICARBONATE 26.3 MEQ/L (21.0-32.0); CALCIUM 8.5 MG/DL (8.5-10.1); CREATININE 0.87 MG/DL (0.50-1.00)
[2017-12-04 16:18] VITALS: BP 145/74; PULSE 85; RESP 17; O2SAT 92
--- NOTE | 2017-12-04 16:53 | RADRPT ---
EXAM DATE/TIME: 12/04/2017 16:35 [facility] COMPARISON: CT THORAX W CONTRAST, February 01, 2010, 14:43. INDICATIONS : SOB, history past PE. Flu like symptoms. IV CONTRAST: 75 cc Omnipaque 350 (iohexol) IV RADIATION DOSE: 18.16 CTDIvol (mGy) MEDICAL HISTORY : Cardiovascular disease. Congestive heart failure. Hypertension. Uterine ca SURGICAL HISTORY : Hysterectomy. ENCOUNTER: Initial ACUITY: 1 day PAIN SCALE: 3/10 LOCATION: chest TECHNIQUE: Volumetric scanning of the chest was performed using a pulmonary embolism protocol MIP images were re constructed. Using automated exposure control and adjustment of the mA and/or kV according to patien t size, radiation dose was kept as low as reasonably achievable to obtain optimal diagnostic quality images. DICOM format image data is available electronically for review and comparison. Follow-up recommendations for detected pulmonary nodules are based at a minimum on nodule size and pa tient risk factors according to Fleischner Society Guidelines. FINDINGS: PULMONARY ARTERIES: No filling defects are seen in the pulmonary arteries through the segmental level. LUNGS: Posterior atelectatic changes are noted bilaterally. There is no consolidation or pneumothorax . No concerning pulmonary nodule is visualized. PLEURAE: There is no pleural thickening or pleural effusion. MEDIASTINUM: There is good visualization of the great vessels of the middle mediastinum. The heart is prominent in size. AP window and subcarinal mediastinal lymphadenopathy is noted. AP window lymphadenopathy measu res 1.9 x 1.3 cm and subcarinal lymphadenopathy measures 1.8 x 3.3 cm. Right hilar lymphadenopathy is also noted. Findings are nonspecific. Infectious, inflammatory and neoplastic etiologies should be c onsidered. MUSCULOSKELETAL: Within normal limits for patient age. MISCELLANEOUS: The visualized upper abdominal organs demonstrate no acute abnormality. Nodule arising from the left lobe of the thyroid extending inferiorly which is incompletely evaluated on this examination. Ultraso und of the thyroid would be helpful for further characterization. Uncomplicated colonic diverticulosi s is noted within the splenic flexure. CONCLUSION: 1. No evidence of pulmonary embolism. 2. AP window and subcarinal mediastinal as well as right hilar lymphadenopathy is noted and is nonspe cific. Infectious, inflammatory and neoplastic etiologies should be considered. 3. Minimal posterior atelectatic changes bilaterally. 4. Cardiomegaly. 5. Uncomplicated colonic diverticulosis. 6. Nodule arising from the left lobe of the thyroid which is incompletely evaluated on this examinati on. Ultrasound would be helpful for further evaluation of this nodule. Bladimir Guerrero MD on December 04, 2017 at 16:44 Board Certified Radiologist. This report was verified electronically.
[2017-12-04] MEDS ORDERED: ALBUAER3 INH (17:28)
[2017-12-04] MEDS ORDERED: PRED20 PO (17:28)
[2017-12-04] MEDS ORDERED: LEVA500T33 PO (17:28)
[2017-12-04] MEDS ORDERED: ONDANSETRON HCL 4 MG/2 ML VIAL IV PUSH ONE (17:30)
[2017-12-04] MEDS ORDERED: MORPHINE SULFATE 2 MG/ML INJ IV PUSH ONE (17:30)
[2017-12-04] MEDS ORDERED: LEVOFLOXACIN 500 MG PREMIX INJ 100 ML IV ONE (17:30)
[2017-12-04 18:19] VITALS: BP 172/86; PULSE 100; RESP 17; O2SAT 96
[2017-12-05 01:12] LABS: ALBUMIN 4.2 GM/DL (3.4-5.0); ALT (GPT) 40 U/L (10-53); AST (GOT) 32 U/L (15-37); DIRECT BILIRUBIN ADULT 0.1 MG/DL (0.0-0.2)
[2017-12-05 01:15] LABS: ALKALINE PHOSPHATASE 81 U/L (45-117); INDIRECT BILIRUBIN 0.2 MG/DL (0.0-0.8); TOTAL BILIRUBIN ADULT 0.3 MG/DL (0.2-1.0); TOTAL PROTEIN 8.2 GM/DL (6.4-8.2); TROPONIN I LESS THAN 0.02 NG/ML (0.02-0.05)
--- NOTE | 2017-12-05 16:43 | EKG ---
Date Performed: 12/04/2017 Time Performed: 14:37:32 PTAGE: 57 years EKG: Sinus rhythm POSSIBLE LEFT ATRIAL ENLARGEMENT POSSIBLE RIGHT VENTRICULAR CONDUCTION DELAY BORDERLINE ECG Compared to PREVIOUS TRACING , atrial abnormality more prominent, otherwise no significant change. [place] EVIOUS TRACIN02/01/2010 12.31 DOCTOR: Mohsen Griffiths Interpretating Date/Time 12/05/2017 16:42:27
== END 2017-12-04 19:21 | disposition home or self-care (01) ==
LOC: NEPE 12:45
DX: J44.1 Chronic obstructive pulmonary disease with (acute) exacerbation (principal); M79.1 Myalgia; I11.0 Hypertensive heart disease with heart failure; I50.9 Heart failure, unspecified; E78.00 Pure hypercholesterolemia, unspecified; F17.200 Nicotine dependence, unspecified, uncomplicated
CPT/HCPCS: 71046; 71275; 80048; 80076; 82550; 82552; 83605; 83880; 84484; 85025; 87040; 87804; 93005; 94664; 96374; 96375; 99285; J1956; J2270; J2405; J2930; Q9967

== ENCOUNTER 2018-01-26 20:45 | Emergency (ER) | payer MEDICAID | END 2018-01-27 01:29 | disposition home or self-care (01) | LOC: NEPD 01-27 01:29 | DX: M17.10 Unilateral primary osteoarthritis, unspecified knee (principal); M25.461 Effusion, right knee | CPT/HCPCS: 20610; 73564; 89060; 99284-25 ==

== ENCOUNTER 2018-02-18 20:24 | Emergency (ER) | payer MEDICAID ==
[~2018-02-18] VITALS: Ht 165.1 cm; Wt 88.0 kg
[~2018-02-18 20:24] MED LIST changes: +ALBUAER3 INH; +IBUP-232 PO; +LEVA500T33 PO; +PRED20 PO
[2018-02-18 20:57] VITALS: BP 171/84; PULSE 74; RESP 20; TEMP 98.4
[2018-02-18] MEDS ORDERED: SODIUM CHLOR 0.9% 1000 ML INJ 1,000 ML IV SCH (21:12)
[2018-02-18] MEDS ORDERED: MORPHINE SULFATE 4 MG/ML INJ IV PUSH ONE (21:15)
[2018-02-18] MEDS ORDERED: SODIUM CHLORIDE 0.9% FLUSH 10 ML FLUSH IV FLUSH PRN (21:15)
[2018-02-18] MEDS ORDERED: HYDROCORTISONE ACETATE 25 MG SUPP RECTAL SCH (21:15)
--- NOTE | 2018-02-18 21:15 | PD ---
HPI Chief Complaint: Abdominal Pain Time Seen by Provider: 21:07 Travel History International Travel<30 days: No Contact w/Intl Traveler<30days: No Traveled to known affect area: No History of Present Illness HPI 57-year-old female here for evaluation of left lower quadrant abdominal pain and rectal pain. She states that the pain has been going on for about 2-3 weeks. She has noted some bright red blood per rectum. She has been using preparation H without relief of rectal pain. Chart review shows that she has a history of diverticulitis. She complains of dysuria and suprapubic pressure as well. Left lower quadrant abdominal pain is moderate, constant, worse with movements. She denies fevers or chills. No vomiting or diarrhea. No melena. PFSH Past Medical History Hx Anticoagulant Therapy: Yes (PT STATES SHE TAKES ASPIRIN "SOMETIMES") Arthritis: Yes Asthma: Yes Autoimmune Disease: No Blood Disorders: No Heart Rhythm Problems: No Cancer: Yes (UTERUS) Cardiovascular Problems: Yes High Cholesterol: Yes Chemotherapy: No Chest Pain: Yes Congestive Heart Failure: Yes COPD: Yes Cerebrovascular Accident: No Diabetes: No Diminished Hearing: No Endocrine: No Gastrointestinal Disorders: Yes GERD: No Glaucoma: No Genitourinary: Yes (KIDNEY STONES) Hepatitis: No Hiatal Hernia: No Heparin Induced Thrombocytopen: No Hypertension: Yes Immune Disorder: No Kidney Stones: Yes Musculoskeletal: Yes Neurologic: Yes Psychiatric: No Reproductive: Yes (HYSTERECTOMY W/ LEFT OOPHERECTOMY) Respiratory: Yes Immunizations Current: Yes Myocardial Infarction: Yes (2003) Radiation Therapy: No Sickle Cell Disease: No Sleep Apnea: No Thyroid Disease: No Ulcer: No Tetanus Vaccination: < 5 Years Influenza Vaccination: Yes ?: Not Menopausal: Yes Past Surgical History Abdominal Surgery: Yes (GALLBLADDER REMOVED) AICD: No Cardiac Surgery: No Cholecystectomy: Yes Ear Surgery: No Endocrine Surgery: No Eye Surgery: No Genitourinary Surgery: Yes (LITHOTRIPSY) Gynecologic Surgery: Yes (PARTIAL HYSTERECTOMY W/ LEFT OOPHERECTOMY) Hysterectomy: Yes (partial) Neurologic Surgery: No Oral Surgery: No Pacemaker: No Thoracic Surgery: No Other Surgery: Yes Social History Alcohol Use: Yes (occasionally) Tobacco Use: Yes Substance Use: No Allergies-Medications (Allergen,Severity, Reaction): Coded Allergies: ibuprofen (Unverified Allergy, Unknown, rash, 02/18/18) Reported Meds & Prescriptions Reported Meds & Active Scripts Active Proair Hfa 8.5 GM Inh (Albuterol Sulfate) 90 Mcg/Act Aer 2 Puff INH Q6H PRN 108 mcg/actuation Reported Oxycodone (Oxycodone HCl) 10 Mg Tab 10 Mg PO Q4H PRN Lipitor (Atorvastatin Calcium) 40 Mg Tab 40 Mg PO HS Amlodipine (Amlodipine Besylate) 5 Mg Tab 5 Mg PO DAILY Ventolin Hfa 18 GM Inh (Albuterol Sulfate) 90 Mcg/Act Aer 2 Puff INH Q4H PRN Review of Systems Except as stated in HPI: all other systems reviewed are Neg Physical Exam Narrative GENERAL: Well-developed, well-nourished, sitting comfortably on stretcher, no apparent distress. SKIN: Focused skin assessment warm/dry. HEAD: Atraumatic. Normocephalic. EYES: Pupils equal and round. No scleral icterus. No injection or drainage. ENT: No nasal bleeding or discharge. Mucous membranes pink and moist. NECK: Trachea midline. No JVD. CARDIOVASCULAR: Regular rate and rhythm. No murmur appreciated. RESPIRATORY: No accessory muscle use. Clear to auscultation. Breath sounds equal bilaterally. GASTROINTESTINAL: Abdomen soft, nondistended. Mild left lower quadrant tenderness without rebound or guarding. No hernias. Normal bowel sounds. RECTUM: Exam performed in the presence of a female nurse. Left-sided external hemorrhoid that is nonthrombosed. No fissures. Heme positive brown stool. MUSCULOSKELETAL: No obvious deformities. No clubbing. No cyanosis. No edema. NEUROLOGICAL: Awake and alert. No obvious cranial nerve deficits. Motor grossly within normal limits. Normal speech. PSYCHIATRIC: Appropriate mood and affect; insight and judgment normal. Data Data Last Documented VS Vital Signs Date Time Temp Pulse Resp B/P (MAP) Pulse Ox O2 Delivery O2 Flow Rate FiO2 02/18/18 21:41 16 02/18/18 21:31 97 Room Air 02/18/18 20:57 98.4 74 171/84 (113) Orders Orders Complete Blood Count With Diff (02/18/18 21:12) Comprehensive Metabolic Panel (02/18/18 21:12) Lipase (02/18/18 21:12) Prothrombin Time / Inr (Pt) (02/18/18 21:12) Act Partial Throm Time (Ptt) (02/18/18 21:12) Urinalysis - C+S If Indicated (02/18/18 21:12) Ct Abd/Pel W Iv Contrast(Rout) (02/18/18 21:12) Iv Access Insert/Monitor (02/18/18 21:12) Ecg Monitoring (02/18/18 21:12) Oximetry (02/18/18 21:12) Morphine Inj (Morphine Inj) (02/18/18 21:15) Sodium Chlor 0.9% 1000 Ml Inj (Ns 1000 M (02/18/18 21:12) Sodium Chloride 0.9% Flush (Ns Flush) (02/18/18 21:15) Hydrocortisone Supp (Hemorrhoidal Hc Sup (02/18/18 21:15) Urine Culture (02/18/18 21:40) Iohexol 350 Inj (Omnipaque 350 Inj) (02/18/18 23:00) Ciprofloxacin (Cipro) (02/18/18 23:45) Metronidazole (Flagyl) (02/18/18 23:45) Labs Laboratory Tests Test 02/18/18 21:40 White Blood Count 5.1 TH/MM3 Red Blood Count 4.59 MIL/MM3 Hemoglobin 14.2 GM/DL Hematocrit 42.2 % Mean Corpuscular Volume 92.0 FL Mean Corpuscular Hemoglobin 30.9 PG Mean Corpuscular Hemoglobin Concent 33.6 % Red Cell Distribution Width 14.1 % Platelet Count 245 TH/MM3 Mean Platelet Volume 9.8 FL Neutrophils (%) (Auto) 53.8 % Lymphocytes (%) (Auto) 35.1 % Monocytes (%) (Auto) 9.6 % Eosinophils (%) (Auto) 0.7 % Basophils (%) (Auto) 0.8 % Neutrophils # (Auto) 2.8 TH/MM3 Lymphocytes # (Auto) 1.8 TH/MM3 Monocytes # (Auto) 0.5 TH/MM3 Eosinophils # (Auto) 0.0 TH/MM3 Basophils # (Auto) 0.0 TH/MM3 CBC Comment DIFF FINAL Differential Comment Prothrombin Time 9.7 SEC Prothromb Time International Ratio 1.0 RATIO Activated Partial Thromboplast Time 23.9 SEC Urine Color YELLOW Urine Turbidity HAZY Urine pH 5.5 Urine Specific [place] 1.014 Urine Protein NEG mg/dL Urine Glucose (UA) NEG mg/dL Urine Ketones NEG mg/dL Urine Occult Blood NEG Urine Nitrite POS Urine Bilirubin NEG Urine Urobilinogen LESS THAN 2.0 MG/DL Urine Leukocyte Esterase MOD Urine RBC 1 /hpf Urine WBC 6 /hpf Urine Squamous Epithelial Cells 2 /hpf Urine Bacteria MANY /hpf Urine Mucus FEW /lpf Microscopic Urinalysis Comment CULTURE INDICATED Blood Urea Nitrogen 16 MG/DL Creatinine 0.99 MG/DL Random Glucose 114 MG/DL Total Protein 7.7 GM/DL Albumin 3.5 GM/DL Calcium Level 8.8 MG/DL Alkaline Phosphatase 96 U/L Aspartate Amino Transf (AST/SGOT) 16 U/L Alanine Aminotransferase (ALT/SGPT) 22 U/L Total Bilirubin 0.2 MG/DL Sodium Level 141 MEQ/L Potassium Level 4.1 MEQ/L Chloride Level 107 MEQ/L Carbon Dioxide Level 25.6 MEQ/L Anion Gap 8 MEQ/L Estimat Glomerular Filtration Rate 69 ML/MIN Lipase 173 U/L MDM Medical Decision Making Medical Screen Exam Complete: Yes Emergency Medical Condition: Yes Medical Record Reviewed: Yes Differential Diagnosis Colitis, diverticulitis, UTI, cystitis, AVM, hemorrhoid Narrative Course Vital signs reviewed. CBC is unremarkable. CMP is unremarkable. UA: Many bacteria, few mucus, moderate leukocyte esterase, positive nitrites. CT abdomen pelvis: Very mild diverticulitis. The patient was made aware of all findings of a copy of her CT abdomen pelvis report. She will be started on Cipro and Flagyl for her diverticulitis as well as UTI. There are no peritoneal signs on abdominal exam and she feels well enough to be discharged home. I will give her the name of the on-call colorectal surgeon with whom she can follow-up with this week. I also advised that she follow-up with her primary care physician this week. She was advised on when to return to the emergency department. She verbalizes understanding and agreement with plan. Diagnosis Primary Impression: Sigmoid diverticulitis Additional Impressions: UTI (urinary tract infection) Qualified Codes: N30.00 - Acute cystitis without hematuria Hemorrhoid Qualified Codes: K64.9 - Unspecified hemorrhoids Referrals: Zuleyka Guerrero MD 1 week Colorectal surgeon Primary Care Physician 3 days Additional Instructions: Follow-up with your primary care physician this week. Return to the emergency department for worsening symptoms or any other concerns. Scripts Oxycodone-Acetaminophen (Percocet) 5-325 mg Tab 1 TAB PO Q6H Y for PAIN, #12 TAB 0 Refills Prov: Mariano Fuller MD 02/18/18 Metronidazole (Flagyl) 500 Mg Tab 500 MG PO BID for Infection for 10 Days, #20 TAB 0 Refills Prov: Mariano Fuller MD 02/18/18 Ciprofloxacin (Cipro) 500 Mg Tab 500 MG PO BID for Infection for 10 Days, #20 TAB 0 Refills Prov: Mariano Fuller MD 02/18/18 Disposition: 01 DISCHARGE HOME Condition: Stable Mariano Fuller MD February 18, 2018 21:15
[2018-02-18 21:31] VITALS: RESP 16; O2SAT 97
[2018-02-18 21:41] VITALS: RESP 16
[2018-02-18 22:00] LABS: AUTOMATED NEUTROPHIL # 2.8 TH/MM3 (1.8-7.7); BASOPHIL % 0.8 % (0.0-2.0); EOSINOPHIL % 0.7 % (0.0-4.0); HEMATOCRIT 42.2 % (35.0-46.0); HEMOGLOBIN 14.2 GM/DL (11.6-15.3); LYMPH % 35.1 % (9.0-44.0); LYMPHOCYTE # 1.8 TH/MM3 (1.0-4.8); MEAN CORPUSCULAR HEMOGLOBIN 30.9 PG (27.0-34.0); MEAN CORPUSCULAR HGB CONC 33.6 % (32.0-36.0); MEAN PLATELET VOLUME 9.8 FL (7.0-11.0); MONO % 9.6 % (0.0-8.0); MONOCYTE # 0.5 TH/MM3 (0-0.9); NEUT % 53.8 % (16.0-70.0); PLATELET COUNT 245 TH/MM3 (150-450); RED BLOOD COUNT 4.59 MIL/MM3 (4.00-5.30); RED CELL DISTRIBUTION WIDTH 14.1 % (11.6-17.2); WHITE BLOOD COUNT 5.1 TH/MM3 (4.0-11.0)
[2018-02-18 22:01] LABS: BACTERIA, URINE MANY /hpf; BILIRUBIN, URINE NEG (NEG); BLOOD, URINE NEG (NEG); GLUCOSE,URINE NEG (NEG); KETONE, URINE NEG (NEG); MUCUS URINE FEW /lpf (OCC); NITRITE,URINE POS (NEG); PH, URINE 5.5 (5.0-8.5); SQUAMOUS EPITHELIAL CELL URINE 2 /hpf (0-5); URINE COLOR YELLOW (YELLW/STRAW); URINE LEUKOCYTE ESTERASE MOD (NEG)
[2018-02-18 22:04] LABS: PROTHROMBIN TIME - PATIENT 9.7 SEC (9.8-11.6)
[2018-02-18 22:14] LABS: ALT (GPT) 22 U/L (10-53)
[2018-02-18 22:16] LABS: ALKALINE PHOSPHATASE 96 U/L (45-117); TOTAL BILIRUBIN ADULT 0.2 MG/DL (0.2-1.0); TOTAL PROTEIN 7.7 GM/DL (6.4-8.2)
[2018-02-18 22:20] LABS: ALBUMIN 3.5 GM/DL (3.4-5.0); AST (GOT) 16 U/L (15-37); BICARBONATE 25.6 MEQ/L (21.0-32.0); BLOOD UREA NITROGEN 16 MG/DL (7-18); CALCIUM 8.8 MG/DL (8.5-10.1); CHLORIDE 107 MEQ/L (98-107); CREATININE 0.99 MG/DL (0.50-1.00); GLOMERULAR FILTRATION RATE 69 ML/MIN (>89); GLUCOSE,RANDOM 114 MG/DL (74-106); SODIUM (NA) 141 MEQ/L (136-145)
[2018-02-18] MEDS ORDERED: IOHEXOL 350 MG/ML 10 ML VIAL (for RAD DIAG) IVCONTRAST ONE (23:00)
--- NOTE | 2018-02-18 23:24 | RADRPT ---
EXAM DATE: 02/18/2018 11:03 PM EDT AGE/SEX: 57 years / Female INDICATIONS: Left lower quadrant pain. Blood in stool. CLINICAL DATA: This is the patient's initial encounter. Patient reports that signs and symptoms have been present for 3 weeks and indicates a pain score of 7/10. MEDICAL/SURGICAL HISTORY: Congestive heart failure. Chronic obstructive pulmonary disease. Re nal calculi. Cholecystectomy. Hysterectomy. ORAL CONTRAST: No oral contrast ingested. RADIATION DOSE: 10.48 CTDI (mGy) COMPARISON: [facility] – [place], [place] ABDOMEN & PELVIS W CONTRAST, 10/17/2016. . TECHNIQUE: Multiple contiguous axial images were obtained through the abdomen and pelvis following b olus infusion of 100 ml Omnipaque 350 (iohexol) nonionic water-soluble contrast as a single exam do se. No oral contrast ingested. Using automated exposure control and adjustment of the mA and/or kV a ccording to patient size, the radiation dose was kept as low as reasonably achievable to obtain optim al diagnostic quality images. FINDINGS: Lung bases are clear. Mild fatty liver. Spleen, kidneys and pancreas demonstrate no acute findings. P revious cholecystectomy. Bilateral adrenal masses measuring 2 to 3 cm in diameter are stable since [facility] 2016. There is colonic diverticulosis with minimal inflammatory changes around the distal left sigmoid colo n characteristic of a mild diverticulitis. CONCLUSION: 1. Very mild diverticulitis around distal sigmoid colon. 2. Previous cholecystectomy. Mild fatty liver. Electronically signed by: Orlando Hinojosa MD 02/18/2018 11:23 PM EDT
[2018-02-18] MEDS ORDERED: PERC5TAB12 PO (23:34)
[2018-02-18] MEDS ORDERED: CIPR-9 PO (23:34)
[2018-02-18] MEDS ORDERED: METR-1 PO (23:34)
[2018-02-18] MEDS ORDERED: CIPROFLOXACIN 500 MG TAB PO ONE (23:45)
[2018-02-18] MEDS ORDERED: metroNIDAZOLE 500 MG TAB PO ONE (23:45)
== END 2018-02-19 00:02 | disposition home or self-care (01) ==
LOC: NEPE 20:24
DX: K57.32 Diverticulitis of large intestine without perforation or abscess without bleeding (principal); N30.00 Acute cystitis without hematuria; K64.9 Unspecified hemorrhoids; E78.00 Pure hypercholesterolemia, unspecified; I11.0 Hypertensive heart disease with heart failure; I50.9 Heart failure, unspecified; J44.9 Chronic obstructive pulmonary disease, unspecified; Z72.0 Tobacco use
CPT/HCPCS: 74177; 80053; 81001; 83690; 85025; 85610; 85730; 87077; 87086; 87186; 96361; 96374; 99285; J2270; J7030; Q9967

== ENCOUNTER 2018-06-17 20:34 | Inpatient (IN) ==
[2018-06-17] MEDS ORDERED: Morphine Inj 4 MG/ML Vial IV.PUSH ONE (23:00)
[2018-06-18 00:39] LABS: Baso % (Auto) 0.3 % (0.0-2.0); Eos % (Auto) 0.3 % (0.0-4.0); Hematocrit 43.5 % (35.0-46.0); Hemoglobin 14.4 gm/dL (11.6-15.3); Lymph # (Auto) 1.5 th/mm3 (1.0-4.8); Lymph % (Auto) 17.8 % (9.0-44.0); Mean Corpuscular Hemoglobin 31.1 pg (27.0-34.0); Mean Corpuscular Volume 94.1 fL (80.0-100.0); Mean Platelet Volume 8.7 fL (7.0-11.0); Mono # (Auto) 0.6 th/mm3 (0.0-0.9); Mono % (Auto) 7.8 % (0.0-8.0); Neut # (Auto) 6.1 th/mm3 (1.8-7.7); Neut % (Auto) 73.8 % (16.0-70.0); Platelet Count 267 th/mm3 (150-450); Red Blood Count 4.62 mil/mm3 (4.00-5.30); Red Cell Distribution Width 14.5 % (11.6-17.2); White Blood Count 8.3 th/mm3 (4.0-11.0)
[2018-06-18 00:43] LABS: Bacteria,Urine Occasional /hpf; Bilirubin,Urine Negative (Negative); Clarity,Urine Hazy (Clear); Color,Urine Yellow (Yellw/Straw); Glucose,Urine (UA) Negative (Negative); Leukocyte Esterase,Urine Negative (Negative); Mucus,Urine Few /lpf (Occasional); Nitrite,Urine Positive (Negative); Specific Gravity,Urine 1.015 (1.002-1.035); Squamous Epithelial Cell,Urine 1 /hpf (0-5)
[2018-06-18 00:54] LABS: Alanine Aminotransferase 20 U/L (10-53); Albumin 3.6 g/dL (3.4-5.0); Anion Gap 11 meq/L (5-15); Aspartate Aminotransferase 12 U/L (15-37); Blood Urea Nitrogen 12 mg/dL (7-18); Calcium 8.4 mg/dL (8.5-10.1); Carbon Dioxide 23.5 meq/L (21.0-32.0); Chloride 107 meq/L (98-107); Glomerular Filtration Rate 79 mL/min (>89); Glucose,Random 98 mg/dL (74-106); Lipase 97 U/L (73-393); Potassium 3.9 meq/L (3.5-5.1); Sodium 141 meq/L (136-145)
[2018-06-18 00:56] LABS: Alkaline Phosphatase 78 U/L (45-117); Total Protein 7.7 g/dL (6.4-8.2)
--- NOTE | 2018-06-18 01:52 | CT ---
EXAM DATE: 06/18/2018 12:00 AM EDT AGE/SEX: 58 years / Female INDICATIONS: Right side abdominal pain. CLINICAL DATA: This is the patient's initial encounter. Patient reports that signs and symptoms have been present for 3 days and indicates a pain score of 10/10. MEDICAL/SURGICAL HISTORY: Ulcerative colitis. Hypertension. Myocardial infarction. Renal bob culi. Cholecystectomy. ORAL CONTRAST: No oral contrast ingested. RADIATION DOSE: 11.02 CTDI (mGy) [place] [facility] [place]/2018. [facility] [place]/O CONTRA ST, 12/21/2014. . TECHNIQUE: Multiple contiguous axial images were obtained through the abdomen and pelvis following b olus infusion of 75 ml Omnipaque 350 (iohexol) nonionic water-soluble contrast as a single exam dos e. No oral contrast ingested. Using automated exposure control and adjustment of the mA and/or kV ac cording to patient size, radiation dose was kept as low as reasonably achievable to obtain optimal di agnostic quality images. DICOM format image data is available electronically for review and comparis on. FINDINGS: Florid diverticulosis seen of the colon, both right and left-sided. Wall thickening and severe inflam matory changes consistent with acute diverticulitis seen of the hepatic flexure/proximal transverse c olon region. No abscess, perforation or obstruction is seen. The rest of the gastrointestinal tract i s within normal limits. The appendix is well-visualized and normal. Liver measures 21 cm craniocaudal and is mild fatty infiltrated, similar to before. Spleen, pancreas and kidneys are within normal limits. Stable enlargement of both adrenal glands. Cholecystectomy young ges are again noted. CONCLUSION: 1. Severe but uncomplicated acute colonic diverticulitis of the hepatic flexure. 2. Enlarged and fatty infiltrated liver again noted. 3. Bilateral adrenal adenomas are stable. Electronically signed by: Ori Parker MD 06/18/2018 1:50 AM EDT
[2018-06-18] MEDS ORDERED: HYDROmorphone PF Inj 2 MG/ML Vial IV.PUSH PRN ×2 (02:05→04:14)
[2018-06-18] MEDS ORDERED: Piperacil/Tazo 4.5 GM Premix 4.5 GM/100 ML BAG IV.SIG ONE (02:05)
[2018-06-18] MEDS ORDERED: Morphine Inj 4 MG/ML Vial IV.PUSH PRN ×2 (04:14)
[2018-06-18] MEDS ORDERED: Naloxone Inj 0.4 MG/ML Vial IV.PUSH PRN (04:14)
[2018-06-18] MEDS ORDERED: Bisacodyl 10 MG Supp RECTAL PRN (04:17)
[2018-06-18] MEDS ORDERED: Promethazine 25 MG Supp RECTAL PRN (04:17)
--- NOTE | 2018-06-18 04:23 | ED ---
HPI General Chief Complaint: Abdominal Pain Stated Complaint: rt flank pain Time Seen by Provider: 06/17/18 22:49 History of Present Illness HPI narrative: Abdominal pain 58-year-old woman with past history of recurrent episodes of diverticulitis, latest January 2018, presents with development of severe abdominal pain similar to prior episodes, but with pain now located in the right upper quadrant of the abdomen. Pain is constant, severe, rates 10 out of 10, aching, throbbing, sometimes stabbing, with radiation about the abdomen, and sometimes toward the back, particularly on the right side. She has had some questionable feverishness, but has not checked her temperature at home. She has not had vomiting, and has been having bowel movements, with no passage of blood, and no melanotic stool. She has no difficulty with urination. Patient has been treated with oral antibiotics previously, as well as pain medication, but has not seen a surgeon that she is aware of for specialty consultation. Past medical history and chart review shows multiple visits for recurrent episodes abdominal pain, past diagnoses of diverticulitis, prior myocardial infarction but no surgeries, tobacco abuse, cigarettes, COPD, past history of uterine fibroids, chronic pain syndrome with lower back pain. Related Data Home Medications Medication Instructions Recorded Confirmed amlodipine 5 mg PO DAILY 04/01/18 06/18/18 fluticasone [Flovent HFA] 2 inh INHALATION BID 04/01/18 06/18/18 hydrocodone-acetaminophen 1 tab PO Q6H PRN 04/01/18 06/18/18 Allergies Allergy/AdvReac Type Severity Reaction Status Date / Time ibuprofen Allergy Unknown rash Verified 06/17/18 22:16 Review of Systems ROS: all other systems reviewed are negative Constitutional Reports chills, Reports fatigue, Reports fever(s) and Reports malaise Cardiovascular Denies chest pain and Denies dyspnea Respiratory Denies chest congestion, Denies cough and Denies dyspnea Gastrointestinal Reports as per HPI, Reports abdominal pain, Reports bloating, Denies coffee ground emesis, Denies heartburn, Reports nausea and Denies hematemesis Genitourinary Reports system reviewed and no additional complaints, except as docu Musculoskeletal Reports back pain Neurologic Reports system reviewed and no additional complaints, except as docu [facility] Medical History Medical History COPD (chronic obstructive pulmonary disease) (Acute) High cholesterol (Acute) Hypertension (Acute) Kidney stone (Acute) Myocardial infarction (Acute) Surgical History Surgical History History of laparoscopic cholecystectomy (Acute) Family History Family History Mother Heart problem Father Liver problem Social History Social History Substance History: No History of Abuse Second Hand Smoke Exposure: Yes Smoking Status: Current every day smoker Tobacco Type: Cigarettes How Often Do You Have a Drink Containing Alcohol: 2 to 4 times a month Recent Travel in [facility] within the Last 8 Weeks: No Recent Out of Country Travel within the Last 8 Weeks: No Immunization History Tetanus Immunization: Unsure Tetanus Immunization Year if Known: 2017 Hx Influenza Vaccine This Season: No Exam Narrative Exam Narrative: GENERAL: Middle-aged woman, in obvious acute distress, uncomfortable on stretcher, even at rest. Blood pressure is borderline, temperature is 99.0F, vital signs otherwise stable, oxygen saturation 98% SKIN: Focused skin assessment warm/dry. HEAD: Atraumatic. Normocephalic. EYES: Pupils equal and round. No scleral icterus. No injection or drainage. ENT: No nasal bleeding or discharge. Mucous membranes pink and moist. NECK: Trachea midline. No JVD. CARDIOVASCULAR: Regular rate and rhythm. No murmur appreciated. RESPIRATORY: No accessory muscle use. Clear to auscultation. Breath sounds equal bilaterally. GASTROINTESTINAL: Abdomen minimally distended but generally soft, tender in all quadrants, worst in right upper quadrant, mild guarding, 1+ rebound in right upper quadrant, also tender in both right lower and left lower abdomen, but less though than in right upper quadrant. Bowel sounds are present. MUSCULOSKELETAL: No obvious deformities. No clubbing. No cyanosis. No edema. NEUROLOGICAL: Awake and alert. No obvious cranial nerve deficits. Motor grossly within normal limits. Normal speech. PSYCHIATRIC: Appropriate mood and affect; insight and judgment normal. Course Initial Documented Vital Signs Temperature 99 F 06/17/18 22:14 Pulse Rate 74 06/17/18 22:14 Respiratory Rate 18 06/17/18 22:14 Blood Pressure 152/75 H 06/17/18 22:14 Pulse Oximetry 98 06/17/18 22:14 Last Documented Vital Signs Temperature 98.0 F 06/18/18 11:56 Pulse Rate 66 06/18/18 16:00 Respiratory Rate 16 06/18/18 16:00 Blood Pressure 131/75 06/18/18 16:00 Pulse Oximetry 95 06/18/18 16:00 Medical Decision Making MDM Narrative Medical decision making narrative: This patient has multiple recurrent episodes of diverticulitis, with extensive diverticulosis, but on CT examination of abdomen today, there is no evidence of rupture, no free air, no abscess formation, the patient is in significant abdominal discomfort. Although her labs are stable, she will need hospitalization for pain control, and hydration, as she has been nauseated, and not taking fluids well, although she has not been vomiting directly. Patient's findings discussed with hospitalist Dr. Hernández, and she will be admitted to observation for pain management, and determination of need for surgical evaluation. Medical Screen Exam Complete: Yes Emergency Medical Condition: Yes Lab Data Lab results reviewed: Yes I reviewed the patient's lab results. Result diagrams: 06/18/18 00:26 06/18/18 00:26 Lab Results 06/18/18 06/18/18 06/18/18 Range/Units 00:15 00:26 00:26 WBC 8.3 (4.0-11.0) th/mm3 RBC 4.62 (4.00-5.30) mil/mm3 Hgb 14.4 (11.6-15.3) gm/dL Hct 43.5 (35.0-46.0) % MCV 94.1 (80.0-100.0) fL MCH 31.1 (27.0-34.0) pg MCHC 33.0 (32.0-36.0) % RDW 14.5 (11.6-17.2) % Plt Count 267 (150-450) th/mm3 MPV 8.7 (7.0-11.0) fL Neut % (Auto) 73.8 H (16.0-70.0) % Lymph % (Auto) 17.8 (9.0-44.0) % [place] % (Auto) 7.8 (0.0-8.0) % Eos % (Auto) 0.3 (0.0-4.0) % Baso % (Auto) 0.3 (0.0-2.0) % Neut # (Auto) 6.1 (1.8-7.7) th/mm3 Lymph # (Auto) 1.5 (1.0-4.8) th/mm3 [place] # (Auto) 0.6 (0.0-0.9) th/mm3 Eos # (Auto) 0.0 (0.0-0.4) th/mm3 Baso # (Auto) 0.0 (0.0-0.2) th/mm3 WBC Differential . Differential Comment Auto diff final Sodium 141 (136-145) meq/L Potassium 3.9 (3.5-5.1) meq/L Chloride 107 (98-107) meq/L Carbon Dioxide 23.5 (21.0-32.0) meq/L Anion Gap 11 (5-15) meq/L BUN 12 (7-18) mg/dL Creatinine 0.88 (0.50-1.00) mg/dL Estimated GFR 79 L (>89) mL/min Random Glucose 98 (74-106) mg/dL Lactic Acid (0.4-2.0) mmol/L Calcium 8.4 L (8.5-10.1) mg/dL Total Bilirubin 0.4 (0.2-1.0) mg/dL AST 12 L (15-37) U/L ALT 20 (10-53) U/L Alkaline Phosphatase 78 (45-117) U/L Total Protein 7.7 (6.4-8.2) g/dL Albumin 3.6 (3.4-5.0) g/dL Lipase 97 (73-393) U/L Urine Color Yellow (Yellw/Straw) Urine Clarity Hazy H (Clear) Urine pH 5.0 (5.0-8.5) Ur Specific [place] 1.015 (1.002-1.035) Urine Protein Negative (Neg-Trace) mg/dL Urine Glucose (UA) Negative (Negative) mg/dL Urine Ketones Negative (Negative) mg/dL Urine Occult Blood Small H (Negative) Urine Nitrate Positive H (Negative) Urine Bilirubin Negative (Negative) Urine Urobilinogen Less than 2 (Less than 2) mg/dL Ur Leukocyte Esterase Negative (Negative) Urine RBC 1 (0-3) /hpf Urine WBC 3 (0-5) /hpf Ur Squamous Epith Cells 1 (0-5) /hpf Urine Bacteria Occasional H (None) /hpf Urine Mucus Few H (Occasional) /lpf Micro UA Comment Culture indicated Ur Microscopic Review Not Reportable Urine Culture Comments Culture indicated 06/18/18 Range/Units 00:26 WBC (4.0-11.0) th/mm3 RBC (4.00-5.30) mil/mm3 Hgb (11.6-15.3) gm/dL Hct (35.0-46.0) % MCV (80.0-100.0) fL MCH (27.0-34.0) pg MCHC (32.0-36.0) % RDW (11.6-17.2) % Plt Count (150-450) th/mm3 MPV (7.0-11.0) fL Neut % (Auto) (16.0-70.0) % Lymph % (Auto) (9.0-44.0) % [place] % (Auto) (0.0-8.0) % Eos % (Auto) (0.0-4.0) % Baso % (Auto) (0.0-2.0) % Neut # (Auto) (1.8-7.7) th/mm3 Lymph # (Auto) (1.0-4.8) th/mm3 [place] # (Auto) (0.0-0.9) th/mm3 Eos # (Auto) (0.0-0.4) th/mm3 Baso # (Auto) (0.0-0.2) th/mm3 WBC Differential Differential Comment Sodium (136-145) meq/L Potassium (3.5-5.1) meq/L Chloride (98-107) meq/L Carbon Dioxide (21.0-32.0) meq/L Anion Gap (5-15) meq/L BUN (7-18) mg/dL Creatinine (0.50-1.00) mg/dL Estimated GFR (>89) mL/min Random Glucose (74-106) mg/dL Lactic Acid 1.6 (0.4-2.0) mmol/L Calcium (8.5-10.1) mg/dL Total Bilirubin (0.2-1.0) mg/dL AST (15-37) U/L ALT (10-53) U/L Alkaline Phosphatase (45-117) U/L Total Protein (6.4-8.2) g/dL Albumin (3.4-5.0) g/dL Lipase (73-393) U/L Urine Color (Yellw/Straw) Urine Clarity (Clear) Urine pH (5.0-8.5) Ur Specific [place] (1.002-1.035) Urine Protein (Neg-Trace) mg/dL Urine Glucose (UA) (Negative) mg/dL Urine Ketones (Negative) mg/dL Urine Occult Blood (Negative) Urine Nitrate (Negative) Urine Bilirubin (Negative) Urine Urobilinogen (Less than 2) mg/dL Ur Leukocyte Esterase (Negative) Urine RBC (0-3) /hpf Urine WBC (0-5) /hpf Ur Squamous Epith Cells (0-5) /hpf Urine Bacteria (None) /hpf Urine Mucus (Occasional) /lpf Micro UA Comment Ur Microscopic Review Urine Culture Comments Imaging Data Radiologist's impression: Abdomen/Pelvis CT 06/18/18 00:00 CONCLUSION: 1. Severe but uncomplicated acute colonic diverticulitis of the hepatic flexure. 2. Enlarged and fatty infiltrated liver again noted. 3. Bilateral adrenal adenomas are stable. Discharge Plan Discharge Disposition Patient Disposition: 30 Still Patient Discharge Condition Condition: Stable Discharge Details Diagnosis: Diverticulitis Physicians Team ED Provider: Leo Haider Primary Care Provider: Chris Gonzalez Attending Provider: Bethany Umana Other Providers: Nima Hooper ; Eric Noel Status ED Status: Left Department Discharge Information Discharge Date/Time: 06/18/18 05:46
[2018-06-18] MEDS: Piperacil/Tazo 4.5 GM Premix 4.5 GM/100 ML BAG IV.SIG SCH ×3 (06:03→17:13)
[2018-06-18] MEDS: Sod Chloride 0.9% Inj 1,000 ML IV.CONT SCH ×6 (06:04→15:02)
--- NOTE | 2018-06-18 06:04 | P.HPIM ---
History of Present Illness Primary Care Physician: Chris Gonzalez History of Present Illness: 58-year-old female with a history of hypertension, COPD, diverticulitis who presents with a 3-day history of intermittent severe right upper quadrant pain radiating throughout the abdomen. She reports subjective fevers, nausea without any vomiting. Denies any chest pain. She does say that taking a deep breath makes her abdomen hurt, and has been a little difficult to breathe due to this Review of Systems All other systems reviewed negative except as stated in HPI PMFSH - History History Provided By: Patient - Medical History Medical History: Medical History (Last Reviewed 06/18/18 @ 04:19 by Leo Haider) COPD (chronic obstructive pulmonary disease) High cholesterol Hypertension Kidney stone Myocardial infarction - Surgical History Surgical History: Surgical History (Last Reviewed 06/18/18 @ 04:19 by Leo Haider) History of laparoscopic cholecystectomy - Family History Family History: Family History (Last Updated 06/18/18 @ 05:57 by Prince Hernández MD) Mother Heart problem Father Liver problem - Tobacco History Second Hand Smoke Exposure: Yes Tobacco Use In Past 30 Days: Yes Smoking Status: Current every day smoker Tobacco Type: Cigarettes - Alcohol History How Often Do You Have a Drink Containing Alcohol: 2 to 3 times a week - Substance Use History Substance History: No History of Abuse - Travel History Recent Travel in the [place] Within the Last 8 Weeks: No Recent Travel Out of the Country Within the Last 8 Weeks: No - Immunization History Tetanus Immunization: Unsure Tetanus Immunization Year if Known: 2017 Hx Influenza Vaccine This Season: No Medications and Allergies Active Medications: Active Medications Al Hydroxide/Mg Hydroxide (Milk Of Breann Caputo) 30 ml PO Q12H PRN PRN Reason: Mild Constipation Amlodipine Besylate (Norvasc) 5 mg PO DAILY DAVID Bisacodyl (Dulcolax Supp) 10 mg RECTAL DAILY PRN PRN Reason: SEVERE CONSITIPATION Fluticasone Propionate (Flovent Hfa 44 Mcg Inh) 2 puff INH BID DAVID Hydromorphone HCl (Dilaudid Pf Inj) 1 mg IV.PUSH Q1H PRN PRN Reason: PAIN 6-10;IF UNABLE TO TAKE PO Hydromorphone HCl (Dilaudid Pf Inj) 0.5 mg IV.PUSH Q3H PRN PRN Reason: PAIN 3-5; IF UABLE TO TAKE PO Sodium Chloride (Ns Inj) 1,000 mls @ 125 mls/hr IV.CONT .Q8H DAVID Piperacillin/Tazobactam/Dextrose (Zosyn 4.5 Gm Premix) 4.5 gm in 100 mls @ 200 mls/hr IV.SIG Q6H DAVID Sodium Chloride (Ns Inj) 1,000 mls @ 100 mls/hr IV.CONT .Q10H DAVID Sodium Chloride (Ns Inj) 1,000 mls @ 125 mls/hr IV.CONT .Q8H DAVID Lactulose (Lactulose Liq) 30 ml PO DAILY PRN PRN Reason: SEVERE CONSITIPATION Morphine Sulfate (Morphine Inj) 4 mg IV.PUSH Q3H PRN PRN Reason: BREAKTHROUGH PAIN Morphine Sulfate (Morphine Inj) 4 mg IV.PUSH Q3H PRN PRN Reason: PAIN 6-10;IF UNABLE TO TAKE PO Naloxone HCl (Narcan Inj) 0.4 mg IV.PUSH UNSCH PRN PRN Reason: SEE LABEL COMMENTS Ondansetron HCl (Zofran Inj) 4 mg IV.PUSH Q6H PRN PRN Reason: NAUSEA OR VOMITING Ondansetron HCl (Zofran Odt) 4 mg PO Q6H PRN PRN Reason: NAUSEA OR VOMITING Oxycodone HCl (Roxicodone) 10 mg PO Q4H PRN PRN Reason: PAIN SCALE 6 TO 10 Oxycodone/Acetaminophen (Percocet 5/325 Mg) 1 tab PO Q6H PRN PRN Reason: PAIN SCALE 3 TO 5 Promethazine HCl (Phenergan) 25 mg PO Q6H PRN PRN Reason: NAUSEA OR VOMITING Promethazine HCl (Phenergan Supp) 25 mg RECTAL Q6H PRN PRN Reason: NAUSEA OR VOMITING Sennosides (Senokot) 17.2 mg PO Q12H PRN PRN Reason: Moderate Constipation Sodium Chloride (Ns Flush) 2 ml IV.FLUSH PRN PRN PRN Reason: FLUSH AFTER USING IV ACCESS Allergies Allergy/AdvReac Type Severity Reaction Status Date / Time ibuprofen Allergy Unknown rash Verified 06/17/18 22:16 Home Medications Medication Instructions Recorded Confirmed Type amlodipine 5 mg PO DAILY 04/01/18 06/18/18 History fluticasone [Flovent HFA] 2 inh INHALATION BID 04/01/18 06/18/18 History hydrocodone-acetaminophen 1 tab PO Q6H PRN 04/01/18 06/18/18 History Exam Vital signs: Vital Signs 06/17/18 22:14 06/17/18 22:15 06/18/18 04:35 Temperature 99 F Pulse Rate 74 78 74 Respiratory Rate 18 16 Blood Pressure 152/75 H 144/78 H Pulse Oximetry 98 98 97 Intake & Output 06/17/18 06/17/18 06/18/18 06:59 18:59 06:59 Intake Total 100 / 100 Balance 100 / 100 Weight 87.543 kg Intake: IV 100 / 100 Zosyn 4.5 GM Premix 4.5 gm In 100 / 100 100 ml @ 200 mls/hr IV.SIG ONCE ONE Rx#:[id number] Narrative: GENERAL: Patient sitting up in bed. Appears uncomfortable. Alert and oriented x3. SKIN: Warm and dry. HEAD: Atraumatic. Normocephalic. EYES: Pupils equal and round. No scleral icterus. No injection or drainage. ENT: No nasal bleeding or discharge. Mucous membranes pink and moist. NECK: Trachea midline. No JVD. CARDIOVASCULAR: Regular rate and rhythm. RESPIRATORY: No accessory muscle use. Clear to auscultation. Breath sounds equal bilaterally. GASTROINTESTINAL: Abdomen soft, nondistended. Tender to moderate palpation in the right upper quadrant. No rebound or guarding. Hepatic and splenic margins not palpable. MUSCULOSKELETAL: Extremities without clubbing, cyanosis, or edema. No obvious deformities. NEUROLOGICAL: Awake and alert. No obvious cranial nerve deficits. Motor grossly within normal limits. Five out of 5 muscle strength in the arms and legs. Normal speech. PSYCHIATRIC: Appropriate mood and affect; insight and judgment normal. Results - Labs CBC & Chem 7: 06/18/18 00:26 06/18/18 00:26 Labs: Short CBC 06/18/18 Range/Units 00:26 WBC 8.3 (4.0-11.0) th/mm3 Hgb 14.4 (11.6-15.3) gm/dL Hct 43.5 (35.0-46.0) % Plt Count 267 (150-450) th/mm3 BMP 06/18/18 00:26 Sodium 141 Potassium 3.9 Chloride 107 Carbon Dioxide 23.5 BUN 12 Creatinine 0.88 Calcium 8.4 L Liver Function 06/18/18 Range/Units 00:26 Total Bilirubin 0.4 (0.2-1.0) mg/dL AST 12 L (15-37) U/L ALT 20 (10-53) U/L Alkaline Phosphatase 78 (45-117) U/L Albumin 3.6 (3.4-5.0) g/dL Urine 06/18/18 Range/Units 00:15 Urine Color Yellow (Yellw/Straw) Urine Clarity Hazy H (Clear) Urine pH 5.0 (5.0-8.5) Ur Specific [place] 1.015 (1.002-1.035) Urine Protein Negative (Neg-Trace) mg/dL Urine Glucose (UA) Negative (Negative) mg/dL - Imaging Impressions Abdomen/Pelvis CT 06/18/18 00:00 CONCLUSION: 1. Severe but uncomplicated acute colonic diverticulitis of the hepatic flexure. 2. Enlarged and fatty infiltrated liver again noted. 3. Bilateral adrenal adenomas are stable. Caprini VTE Risk Assessment Caprini VTE Risk Assessment: No/Low Risk (score <= 1) Caprini Risk Assessment Model: Point Value = 1 Point Value = 2 Point Value = 3 Point Value = 5 Age 41-60 Minor surgery BMI > 25 kg/m2 Swollen legs Varicose veins or History of unexplained or recurrent spontaneous Oral contraceptives or hormone replacement Sepsis (< 1 month) Serious lung disease, including pneumonia (< 1 month) Abnormal pulmonary function Acute myocardial infarction Congestive heart failure (< 1 month) History of inflammatory bowel disease Medical patient at bed rest Age 61-74 Arthroscopic surgery Major open surgery (> 45 min) Laparoscopic surgery (> 45 min) Malignancy Confined to bed (> 72 hours) Immobilizing plaster cast Central venous access Age >= 75 History of VTE Family history of VTE Factor V Leiden Prothrombin [id number] Lupus anticoagulant Anticardiolipin antibodies Elevated serum homocysteine Heparin-induced thrombocytopenia Other congenital or acquired thrombophilia Stroke (< 1 month) Elective arthroplasty Hip, pelvis, or leg fracture Acute spinal cord injury (< 1 month) Prophylaxis Regimen: Total Risk Factor Score Risk Level Prophylaxis Regimen 0-1 Low Early ambulation 2 Moderate Order ONE of the following: *Sequential Compression Device (SCD) *Heparin 5000 units SQ BID 3-4 Higher Order ONE of the following medications: *Heparin 5000 units SQ TID *Enoxaparin/Lovenox 40 mg SQ daily (WT < 150 kg, CrCl > 30 mL/min) *Enoxaparin/Lovenox 30 mg SQ daily (WT < 150 kg, CrCl > 10-29 mL/min) *Enoxaparin/Lovenox 30 mg SQ BID (WT < 150 kg, CrCl > 30 mL/min) AND/OR *Sequential Compression Device (SCD) 5 or more Highest Order ONE of the following medications: *Heparin 5000 units SQ TID (Preferred with Epidurals) *Enoxaparin/Lovenox 40 mg SQ daily (WT < 150 kg, CrCl > 30 mL/min) *Enoxaparin/Lovenox 30 mg SQ daily (WT < 150 kg, CrCl > 10-29 mL/min) *Enoxaparin/Lovenox 30 mg SQ BID (WT < 150 kg, CrCl > 30 mL/min) AND *Sequential Compression Device (SCD) Assessment and Plan - Plan //Acute diverticulitis //Nausea. = Significant nausea and pain uncontrolled = Lactic acid within normal limits. CT with diverticulitis of the hepatic flexure. =Due to recurrent episode. Will consult general surgery. Antiemetics as necessary. Pain medication as necessary start on Zosyn. //Urinalysis with nitrates. Patient denies any dysuria. Urine culture has been drawn but really this is probably just asymptomatic bacteriuria. //Hypertension. Blood pressure acceptable. Continue home medications. //History of COPD. Continue home medications. Duo nebs as necessary. Discussed Condition With: Patient, nurse, ED physician.
[2018-06-18] MEDS: amLODIPine 5 MG Tablet PO SCH (09:01)
--- NOTE | 2018-06-18 10:40 | P.CONGS ---
[facility] Gen Surgery Consult Note Consult date: 06/18/18 Reason for consult: abdominal pain Requesting physician: Prince Hernández Narrative: This is a 58 year old female with a past medical history of COPD, hypertension and diverticulitis. She has been seen in the past by Dr. Jackson in 2014 and was to come to the office for evaluation of elective resection of diseased portion. She was supposed to get clearance from her [employer] [employer] and see her GI doctor but did not follow up in the office to schedule her surgery. She came to the ED yesterday with complaints of abdominal pain with no associated nausea and vomiting. She denies any fevers or chills. A CT abdomen/pelvis was obtained which shows severe diverticulitis without any abscess. Her WBC is normal. She is unsure of her last colonoscopy but thinks it might have been earlier this year and she does not recall any abnormal findings. She saw her [facility] (she is unsure of the name) last year with no issues. She sees her PCP monthly. A General Surgery consultation has been requested. Review of Systems All other systems reviewed negative except as stated in [facility] - History History Provided By: Patient - Medical History Medical History: Medical History (Last Reviewed 06/18/18 @ 14:35 by MIKE Roper) COPD (chronic obstructive pulmonary disease) High cholesterol Hypertension Kidney stone Myocardial infarction - Surgical History Surgical History: Surgical History (Last Reviewed 06/18/18 @ 14:35 by MIKE Roper) History of laparoscopic cholecystectomy - Family History Family History: Family History (Last Updated 06/18/18 @ 05:57 by Prince Hernández MD) Mother Heart problem Father Liver problem - Tobacco History Second Hand Smoke Exposure: Yes Tobacco Use In Past 30 Days: Yes Smoking Status: Current every day smoker Tobacco Type: Cigarettes - Alcohol History How Often Do You Have a Drink Containing Alcohol: 2 to 4 times a month - Substance Use History Substance History: No History of Abuse - Travel History Recent Travel in the [place] Within the Last 8 Weeks: No Recent Travel Out of the Country Within the Last 8 Weeks: No - Immunization History Tetanus Immunization: Unsure Tetanus Immunization Year if Known: 2017 Hx Influenza Vaccine This Season: No Medications and Allergies Allergies Allergy/AdvReac Type Severity Reaction Status Date / Time ibuprofen Allergy Unknown rash Verified 06/17/18 22:16 Home Medications Medication Instructions Recorded Confirmed Type amlodipine 5 mg PO DAILY 04/01/18 06/18/18 History fluticasone [Flovent HFA] 2 inh INHALATION BID 04/01/18 06/18/18 History hydrocodone-acetaminophen 1 tab PO Q6H PRN 04/01/18 06/18/18 History Active Medications: Active Medications Al Hydroxide/Mg Hydroxide (Milk Of Magnesia Liq) 30 ml PO Q12H PRN PRN Reason: Mild Constipation Albuterol (Duoneb Neb (Prn)) 1 ampul NEB Q2HR NEB PRN PRN Reason: SHORTNESS OF BREATH/WHEEZING Amlodipine Besylate (Norvasc) 5 mg PO DAILY [facility] Last Admin: 06/18/18 09:01 Dose: 5 mg Bisacodyl (Dulcolax Supp) 10 mg RECTAL DAILY PRN PRN Reason: SEVERE CONSITIPATION Fluticasone Propionate (Flovent Hfa 44 Mcg Inh) 2 puff INH BID [facility] Last Admin: 06/18/18 09:01 Dose: 2 puff Hydromorphone HCl (Dilaudid Pf Inj) 1 mg IV.PUSH Q1H PRN PRN Reason: PAIN 6-10;IF UNABLE TO TAKE PO Hydromorphone HCl (Dilaudid Pf Inj) 0.5 mg IV.PUSH Q3H PRN PRN Reason: PAIN 3-5; IF UABLE TO TAKE PO Sodium Chloride (Ns Inj) 1,000 mls @ 125 mls/hr IV.CONT .Q8H [facility] Last Admin: 06/18/18 06:05 Dose: Not Given Piperacillin/Tazobactam/Dextrose (Zosyn 4.5 Gm Premix) 4.5 gm in 100 mls @ 200 mls/hr IV.SIG Q6H [facility] Last Infusion: 06/18/18 07:13 Dose: Infused Sodium Chloride (Ns Inj) 1,000 mls @ 100 mls/hr IV.CONT .Q10H [facility] Last Admin: 06/18/18 06:04 Dose: 100 mls/hr Sodium Chloride (Ns Inj) 1,000 mls @ 125 mls/hr IV.CONT .Q8H [facility] Last Admin: 06/18/18 06:05 Dose: Not Given Lactulose (Lactulose Liq) 30 ml PO DAILY PRN PRN Reason: SEVERE CONSITIPATION Morphine Sulfate (Morphine Inj) 4 mg IV.PUSH Q3H PRN PRN Reason: BREAKTHROUGH PAIN Last Admin: 06/18/18 06:04 Dose: 4 mg Morphine Sulfate (Morphine Inj) 4 mg IV.PUSH Q3H PRN PRN Reason: PAIN 6-10;IF UNABLE TO TAKE PO Naloxone HCl (Narcan Inj) 0.4 mg IV.PUSH UNSCH PRN PRN Reason: SEE LABEL COMMENTS Ondansetron HCl (Zofran Inj) 4 mg IV.PUSH Q6H PRN PRN Reason: NAUSEA OR VOMITING Ondansetron HCl (Zofran Odt) 4 mg PO Q6H PRN PRN Reason: NAUSEA OR VOMITING Oxycodone HCl (Roxicodone) 10 mg PO Q4H PRN PRN Reason: PAIN SCALE 6 TO 10 Oxycodone/Acetaminophen (Percocet 5/325 Mg) 1 tab PO Q6H PRN PRN Reason: PAIN SCALE 3 TO 5 Last Admin: 06/18/18 09:01 Dose: 1 tab Promethazine HCl (Phenergan) 25 mg PO Q6H PRN PRN Reason: NAUSEA OR VOMITING Promethazine HCl (Phenergan Supp) 25 mg RECTAL Q6H PRN PRN Reason: NAUSEA OR VOMITING Sennosides (Senokot) 17.2 mg PO Q12H PRN PRN Reason: Moderate Constipation Sodium Chloride (Ns Flush) 2 ml IV.FLUSH PRN PRN PRN Reason: FLUSH AFTER USING IV ACCESS Exam Vital signs: Vital Signs 06/17/18 22:14 06/17/18 22:15 06/18/18 04:35 Temperature 99 F Pulse Rate 74 78 74 Respiratory Rate 18 16 Blood Pressure 152/75 H 144/78 H Pulse Oximetry 98 98 97 06/18/18 07:48 Temperature 98.2 F Pulse Rate 63 Respiratory Rate 16 Blood Pressure 123/68 Pulse Oximetry 96 Intake & Output 06/17/18 06/18/18 06/18/18 18:59 06:59 18:59 Intake Total 100 / 100 100 / 100 Balance 100 / 100 100 / 100 Weight 87.543 kg Intake: IV 100 / 100 100 / 100 Zosyn 4.5 GM Premix 4.5 gm In 100 / 100 100 / 100 100 ml @ 200 mls/hr IV.SIG Q6H [facility] Rx#:[id number] Narrative: GENERAL: Very pleasant 58 year old female resting in bed in no acute distress. SKIN: Warm and dry. HEAD: Atraumatic. Normocephalic. EYES: Pupils equal and round. No scleral icterus. No injection or drainage. ENT: No nasal bleeding or discharge. Mucous membranes pink and moist. NECK: Trachea midline. CARDIOVASCULAR: Regular rate and rhythm. RESPIRATORY: No accessory muscle use. Clear to auscultation. Breath sounds equal bilaterally. GASTROINTESTINAL: Abdomen soft, nondistended, obese abdomen. Tender throughout abdomen. Faint laparoscopic scars. MUSCULOSKELETAL: Extremities without clubbing, cyanosis, or edema. No obvious deformities. NEUROLOGICAL: Awake and alert. No obvious cranial nerve deficits. Motor grossly within normal limits. Five out of 5 muscle strength in the arms and legs. Normal speech. PSYCHIATRIC: Appropriate mood and affect; insight and judgment normal. - Routine Respiratory Exam Present: CTA bilaterally - Routine Cardiovascular Exam Present: RRR - Routine Abdominal Exam Present: soft, tenderness (LLQ, moderately severe), guarding Results - Labs 06/19/18 03:13 06/19/18 03:13 Laboratory Results - last 24 hr 06/18/18 06/18/18 06/18/18 00:15 00:26 00:26 WBC 8.3 RBC 4.62 Hgb 14.4 Hct 43.5 MCV 94.1 MCH 31.1 MCHC 33.0 RDW 14.5 Plt Count 267 MPV 8.7 Neut % (Auto) 73.8 H Lymph % (Auto) 17.8 [place] % (Auto) 7.8 Eos % (Auto) 0.3 Baso % (Auto) 0.3 Neut # (Auto) 6.1 Lymph # (Auto) 1.5 [place] # (Auto) 0.6 Eos # (Auto) 0.0 Baso # (Auto) 0.0 WBC Differential . Differential Comment Auto diff final Sodium 141 Potassium 3.9 Chloride 107 Carbon Dioxide 23.5 Anion Gap 11 BUN 12 Creatinine 0.88 Estimated GFR 79 L Random Glucose 98 Lactic Acid Calcium 8.4 L Total Bilirubin 0.4 AST 12 L ALT 20 Alkaline Phosphatase 78 Total Protein 7.7 Albumin 3.6 Lipase 97 Urine Color Yellow Urine Clarity Hazy H Urine pH 5.0 Ur Specific [place] 1.015 Urine Protein Negative Urine Glucose (UA) Negative Urine Ketones Negative Urine Occult Blood Small H Urine Nitrate Positive H Urine Bilirubin Negative Urine Urobilinogen Less than 2 Ur Leukocyte Esterase Negative Urine RBC 1 Urine WBC 3 Ur Squamous Epith Cells 1 Urine Bacteria Occasional H Urine Mucus Few H Micro UA Comment Culture indicated Ur Microscopic Review Not Reportable Urine Culture Comments Culture indicated 06/18/18 00:26 WBC RBC Hgb Hct MCV MCH MCHC RDW Plt Count MPV Neut % (Auto) Lymph % (Auto) [place] % (Auto) Eos % (Auto) Baso % (Auto) Neut # (Auto) Lymph # (Auto) [place] # (Auto) Eos # (Auto) Baso # (Auto) WBC Differential Differential Comment Sodium Potassium Chloride Carbon Dioxide Anion Gap BUN Creatinine Estimated GFR Random Glucose Lactic Acid 1.6 Calcium Total Bilirubin AST ALT Alkaline Phosphatase Total Protein Albumin Lipase Urine Color Urine Clarity Urine pH Ur Specific [place] Urine Protein Urine Glucose (UA) Urine Ketones Urine Occult Blood Urine Nitrate Urine Bilirubin Urine Urobilinogen Ur Leukocyte Esterase Urine RBC Urine WBC Ur Squamous Epith Cells Urine Bacteria Urine Mucus Micro UA Comment Ur Microscopic Review Urine Culture Comments - Imaging Imaging: ITS Impressions Abdomen/Pelvis CT 06/18/18 00:00 CONCLUSION: 1. Severe but uncomplicated acute colonic diverticulitis of the hepatic flexure. 2. Enlarged and fatty infiltrated liver again noted. 3. Bilateral adrenal adenomas are stable. CT scan - abdomen: report reviewed, image reviewed Assessment and Plan - Assessment (1) Diverticulitis Code(s): K57.92 - Status: Acute Plan: 58 year old female with uncomplicated diverticulitis -Clear liquids -Continue IVF -Continue Zosyn -EKG -Will let inflammation cool off over the weekend and plan for OR intervention Thursday -Discussed the possibility of colostomy but that the best case scenario is to let the inflammation calm and then do the surgery -We will continue to follow -Thank you for this consult; We will continue to follow Clear liquids IVF/antibiotics Surgery next week; discussed with patient; may be able to perform in one stage The exam, history, and the medical decision-making described in the above note were completed with the assistance of the mid-level provider. I reviewed and agree with the findings presented. I attest that I had a [id number] encounter with the patient on the same day, and personally performed and documented my assessment and findings in the medical record. - Plan Discussed Condition With: Dr. Rufus Ortiz
--- NOTE | 2018-06-18 21:30 | ECG ---
Date Performed: 06/18/2018 Time Performed: 18:00:10 PTAGE: 58 years EKG: Sinus rhythm POSSIBLE RIGHT VENTRICULAR CONDUCTION DELAY BORDERLINE ECG No significant change from prior electroc ardiogram. PREVIOUS TRACING : 04/01/2018 21.36 DOCTOR: Michael Boggs Interpretating Date/Time 06/18/2018 21:28:36
[2018-06-19] MEDS: Sod Chloride 0.9% Inj 1,000 ML IV.CONT SCH ×5 (01:02→11:57)
[2018-06-19] MEDS: Piperacil/Tazo 4.5 GM Premix 4.5 GM/100 ML BAG IV.SIG SCH ×4 (01:42→17:05)
[2018-06-19 03:39] LABS: Baso % (Auto) 0.6 % (0.0-2.0); Eos % (Auto) 0.4 % (0.0-4.0); Hematocrit 40.6 % (35.0-46.0); Hemoglobin 13.3 gm/dL (11.6-15.3); Lymph # (Auto) 1.2 th/mm3 (1.0-4.8); Lymph % (Auto) 18.8 % (9.0-44.0); Mean Corpuscular HGB Conc 32.9 % (32.0-36.0); Mean Corpuscular Hemoglobin 31.2 pg (27.0-34.0); Mean Platelet Volume 8.5 fL (7.0-11.0); Mono # (Auto) 0.5 th/mm3 (0.0-0.9); Mono % (Auto) 7.6 % (0.0-8.0); Neut # (Auto) 4.6 th/mm3 (1.8-7.7); Neut % (Auto) 72.6 % (16.0-70.0); Platelet Count 236 th/mm3 (150-450); Red Blood Count 4.27 mil/mm3 (4.00-5.30); Red Cell Distribution Width 14.5 % (11.6-17.2); White Blood Count 6.3 th/mm3 (4.0-11.0)
[2018-06-19 04:04] LABS: Alanine Aminotransferase 29 U/L (10-53); Anion Gap 8 meq/L (5-15); Aspartate Aminotransferase 23 U/L (15-37); Blood Urea Nitrogen 6 mg/dL (7-18); Calcium 7.9 mg/dL (8.5-10.1); Carbon Dioxide 26.4 meq/L (21.0-32.0); Chloride 108 meq/L (98-107); Glomerular Filtration Rate Greater Than 89 mL/min (>89); Glucose,Random 99 mg/dL (74-106); Potassium 3.5 meq/L (3.5-5.1); Sodium 142 meq/L (136-145)
[2018-06-19 04:06] LABS: Alkaline Phosphatase 75 U/L (45-117)
--- NOTE | 2018-06-19 07:23 | P.PN ---
Subjective Interval history: Follow-up on patient with acute, recurrent diverticulitis. Patient seen and examined. Patient denies any complaints of nausea or vomiting today. She reports one small loose bowel movement this morning. She denies any bloody BM. She continues to have abdominal pain mostly in the right upper quadrant and epigastric area. She denies any chest pain or shortness of breath. She denies any fever or chills. Physical Exam Vital signs: Vital Signs 06/18/18 07:48 06/18/18 11:56 06/18/18 16:00 Temperature 98.2 F 98.0 F Pulse Rate 63 62 66 Respiratory Rate 16 16 16 Blood Pressure 123/68 139/79 131/75 Pulse Oximetry 96 96 95 06/18/18 20:00 06/18/18 23:19 06/19/18 04:00 Temperature 98.4 F 98.7 F 97.8 F Pulse Rate 66 67 64 Respiratory Rate 18 18 18 Blood Pressure 124/72 129/80 123/60 Pulse Oximetry 96 93 L 94 L Intake & Output 06/18/18 06/19/18 06/19/18 18:59 06:59 18:59 Intake Total 1300 / 1300 2220 / 2220 Balance 1300 / 1300 2220 / 2220 Intake: IV 1300 / 1300 2220 / 2220 NS Inj 1,000 ML @ 125 mls/hr IV 1000 / 1000 2019 / 2019 .CONT .Q8H [facility] Rx#:[id number] Zosyn 4.5 GM Premix 4.5 gm In 300 / 300 200 / 200 100 ml @ 200 mls/hr IV.SIG Q6H [facility] Rx#:[id number] Narrative: GENERAL: Well-developed well-nourished -[place] middle-aged female, no acute distress. Awake and alert. SKIN: Warm and dry. HEENT: Atraumatic. Normocephalic. Pupils equal and round. No scleral icterus. No injection or drainage. No nasal bleeding or discharge. Mucous membranes pink and moist. NECK: Trachea midline. CARDIOVASCULAR: Regular rate and rhythm. RESPIRATORY: No accessory muscle use. Clear to auscultation. Breath sounds equal bilaterally. GASTROINTESTINAL: Abdomen soft, nondistended. Tender to moderate palpation in the right upper quadrant. No rebound or guarding. Hepatic and splenic margins not palpable. MUSCULOSKELETAL: Extremities without clubbing, cyanosis, or edema. No obvious deformities. NEUROLOGICAL: Awake and alert. No obvious cranial nerve deficits. Motor grossly within normal limits. Able to move all extremities spontaneously. Normal speech. PSYCHIATRIC: Appropriate mood and affect; insight and judgment normal. Results - Labs CBC & Chem 7: 06/19/18 03:13 06/19/18 03:13 Laboratory Results - last 24 hr 06/19/18 06/19/18 03:13 03:13 WBC 6.3 RBC 4.27 Hgb 13.3 Hct 40.6 MCV 95.0 MCH 31.2 MCHC 32.9 RDW 14.5 Plt Count 236 MPV 8.5 Neut % (Auto) 72.6 H Lymph % (Auto) 18.8 [place] % (Auto) 7.6 Eos % (Auto) 0.4 Baso % (Auto) 0.6 Neut # (Auto) 4.6 Lymph # (Auto) 1.2 [place] # (Auto) 0.5 Eos # (Auto) 0.0 Baso # (Auto) 0.0 WBC Differential . Differential Comment Auto diff final Sodium 142 Potassium 3.5 Chloride 108 H Carbon Dioxide 26.4 Anion Gap 8 BUN 6 L Creatinine 0.78 Estimated GFR Greater than 89 Random Glucose 99 Calcium 7.9 L Total Bilirubin 0.7 AST 23 ALT 29 Alkaline Phosphatase 75 Total Protein 7.0 D Albumin 3.0 L D Assessment and Plan - Plan 58-year-old female with a history of hypertension, COPD, diverticulitis who presents with a 3-day history of intermittent severe right upper quadrant pain radiating throughout the abdomen. Acute diverticulitis History of recurrent diverticulitis Significant nausea and pain uncontrolled Lactic acid within normal limits. CT with diverticulitis of the hepatic flexure -General surgery following, appreciate assistance. Continue on clear liquid diet, IV fluids and IV Zosyn. Plan to allow inflammation time to improve over the weekend and plan for OR intervention on Thursday. To begin bowel prep tomorrow. -undergoing cardiac presurgical clearance by Dr. Noel, plan for Lexiscan -Continue on IV Zosyn -Continue antiemetics as needed -pain management UTI UA growing GNR Patient denies any dysuria -Continue on IV Zosyn -Follow-up on final urine culture results Hypertension, chronic Blood pressure acceptable -continue on Norvasc 5mg daily History of COPD, not in acute exacerbation -Continue home medications -Duonebs as necessary -continue to monitor respiratory status DVT prophylaxis -Heparin sq Code Status: FULL Discussed Condition With: patient, nursing staff, Dr. Moran Discharge Planning: Not ready for discharge
[2018-06-19] MEDS: amLODIPine 5 MG Tablet PO SCH (09:10)
--- NOTE | 2018-06-19 11:17 | MB ---
cc: Eric Noel MD DATE: 06/19/2018 REASON FOR CONSULTATION: Preoperative evaluation. HISTORY OF PRESENT ILLNESS: The patient is a pleasant 58-year-old woman who is very vague about her history. I have been asked to perform preoperative evaluation for upcoming colectomy due to diverticulitis with severe right upper quadrant pain. The patient tells me she had a heart attack about 10 years ago, but cannot give me any specific details about it. She says she has never had a heart catheterization or any heart procedure done. She does admit to intermittent chest pain, but again she is quite vague about it. She describes these as sharp in her epigastric region, but cannot really give me much in the way of eliciting or qualifying factors. She does seem uncomfortable from her current diverticulitis. PAST MEDICAL HISTORY: Hypertension, COPD, diverticulitis, questionable myocardial infarction, hypertension, hyperlipidemia. CURRENT MEDICATIONS: 1. Norvasc 5 mg daily. 2. Dilaudid. 3. Morphine. 4. Phenergan. ALLERGIES: IBUPROFEN. PHYSICAL EXAMINATION: VITAL SIGNS: Temperature 99.1, pulse 56, respiratory rate 14, BP 134/75, saturating 94 on room air. GENERAL: Pleasant, woman in mild abdominal distress. NECK: No JVD. LUNGS: Clear to auscultation bilaterally. CARDIOVASCULAR: Regular rate and rhythm. No murmurs appreciated. ABDOMEN: Benign. EXTREMITIES: No edema. LABORATORY DATA: Sodium 142, potassium 3.5, chloride 108, bicarbonate 26.4, BUN 6, creatinine 0.78, glucose 99. White count 6.3, hematocrit 40.6, platelets 236. EKG shows sinus rhythm without any acute ST or T-wave changes. IMPRESSION: Preoperative evaluation. The patient does endorse some atypical chest pain and has a questionable prior myocardial infarction in the past. Given her symptoms, I will have her undergo 3 sets of cardiac enzymes today and if normal, she can have a nuclear stress test tomorrow, so she can proceed to surgery on Thursday. Obviously, if her clinical condition warrants a more urgent surgical procedure, she should be taken without the remainder of this testing done as in general, I believe she is going to be fairly low risk given her nontoxic appearance and normal-appearing EKG. Further recommendations based on the above. Thank you again for the opportunity to participate in this patient's care. MD Ariadna Murray , 09:38 AM , 09:44 AM
[2018-06-19 11:21] LABS: Creatine Kinase 75 U/L (26-192)
--- NOTE | 2018-06-19 11:36 | P.PNGS ---
Subjective Patient reports: no new complaints (no fevers, tolerating liquids) Physical Exam Vital signs: Vital Signs 06/18/18 11:56 06/18/18 16:00 06/18/18 20:00 Temperature 98.0 F 98.4 F Pulse Rate 62 66 66 Respiratory Rate 16 16 18 Blood Pressure 139/79 131/75 124/72 Pulse Oximetry 96 95 96 06/18/18 23:19 06/19/18 04:00 06/19/18 08:00 Temperature 98.7 F 97.8 F 99.1 F Pulse Rate 67 64 56 L Respiratory Rate 18 18 14 Blood Pressure 129/80 123/60 134/75 Pulse Oximetry 93 L 94 L 94 L Intake & Output 06/18/18 06/19/18 06/19/18 18:59 06:59 18:59 Intake Total 1300 / 1300 2220 / 2220 Balance 1300 / 1300 2220 / 2220 Intake: IV 1300 / 1300 2220 / 2220 NS Inj 1,000 ML @ 125 mls/hr IV 1000 / 1000 2019 / 2019 .CONT .Q8H [facility] Rx#:[id number] Zosyn 4.5 GM Premix 4.5 gm In 300 / 300 200 / 200 100 ml @ 200 mls/hr IV.SIG Q6H [facility] Rx#:[id number] Other: # Voids 1 - Routine Abdominal Exam Present: soft (+ttp llq, no rebound) Results - Labs 06/19/18 03:13 06/19/18 03:13 Laboratory Results - last 24 hr 06/19/18 06/19/18 06/19/18 03:13 03:13 10:21 WBC 6.3 RBC 4.27 Hgb 13.3 Hct 40.6 MCV 95.0 MCH 31.2 MCHC 32.9 RDW 14.5 Plt Count 236 MPV 8.5 Neut % (Auto) 72.6 H Lymph % (Auto) 18.8 [place] % (Auto) 7.6 Eos % (Auto) 0.4 Baso % (Auto) 0.6 Neut # (Auto) 4.6 Lymph # (Auto) 1.2 [place] # (Auto) 0.5 Eos # (Auto) 0.0 Baso # (Auto) 0.0 WBC Differential . Differential Comment Auto diff final Sodium 142 Potassium 3.5 Chloride 108 H Carbon Dioxide 26.4 Anion Gap 8 BUN 6 L Creatinine 0.78 Estimated GFR Greater than 89 Random Glucose 99 Calcium 7.9 L Total Bilirubin 0.7 AST 23 ALT 29 Alkaline Phosphatase 75 Total Creatine Kinase 75 Troponin I Less than 0.02 L Total Protein 7.0 D Albumin 3.0 L D - Imaging Imaging: ITS Impressions Abdomen/Pelvis CT 06/18/18 00:00 CONCLUSION: 1. Severe but uncomplicated acute colonic diverticulitis of the hepatic flexure. 2. Enlarged and fatty infiltrated liver again noted. 3. Bilateral adrenal adenomas are stable. Assessment and Plan - Assessment (1) Diverticulitis Code(s): K57.92 - Diverticulitis of intestine, part unspecified, without perforation or abscess without bleeding Status: Acute Plan: 58 year old female with uncomplicated diverticulitis wbc normal no fevers, pain stable -Clear liquids -Continue IVF -Continue Zosyn -EKG -Will let inflammation cool off over the weekend and plan for OR intervention Thursday -bowel prep tomorrow
--- NOTE | 2018-06-19 14:58 | ECG ---
Date Performed: 06/19/2018 Time Performed: 14:28:36 PTAGE: 58 years EKG: SINUS BRADYCARDIA POSSIBLE RIGHT VENTRICULAR CONDUCTION DELAY BORDERLINE ECG No significant change from prior electrocardiogram. PREVIOUS TRACING : 06/18/2018 18.00 DOCTOR: Michael Boggs Interpretating Date/Time 06/19/2018 14:57:48
[2018-06-19 17:11] LABS: Creatine Kinase 77 U/L (26-192)
[2018-06-19] MEDS: Heparin - SQ 10,000 UNITS/ML Vial SQ SCH (20:36)
[2018-06-20] MEDS: Sod Chloride 0.9% Inj 1,000 ML IV.CONT SCH ×3 (00:09→16:51)
[2018-06-20] MEDS: Piperacil/Tazo 4.5 GM Premix 4.5 GM/100 ML BAG IV.SIG SCH ×4 (00:10→17:01)
[2018-06-20] MEDS: amLODIPine 5 MG Tablet PO SCH (08:49)
[2018-06-20] MEDS: Heparin - SQ 10,000 UNITS/ML Vial SQ SCH (09:00)
[2018-06-20] MEDS ORDERED: Regadenoson Inj 0.4 MG/5 ML Syringe IV.PUSH ONE (09:59)
--- NOTE | 2018-06-20 11:37 | NM ---
EXAM DATE: 06/20/2018 9:16 AM EDT AGE/SEX: 58 years / Female INDICATIONS:Angina. Myocardial infarction Mid chest pain. Pre operative clearance. CLINICAL DATA: This is the patient's initial encounter. Patient reports that signs and symptoms have been present for 1 day and indicates a pain score of 4/10. MEDICAL/SURGICAL HISTORY: Chronic obstructive pulmonary disease. Hypertension. Cholecystectomy . COMPARISON: No prior exams available for comparison. No external comparison. DOSE: 8.7 mCi Tc 99m Myoview at rest 25.5 mCi [id number] at stress 0.4 mg Lexiscan STRESS SYMPTOMS: Shortness of breath. EJECTION FRACTION: 67 % TECHNIQUE: The patient underwent pharmacologic stress with infusion of prescribed dose. Continuous ECG tracing was monitored during stress. Gated SPECT imaging was performed after stress and conventi onal SPECT imaging was performed at rest. The examination was performed on a SPECT/CT scanner, both attenuation and non-corrected datasets were reviewed. FINDINGS: Distribution: The maximum perfused segment at stress is in the anterior lateral wall. Perfusion Study: The pattern of perfusion at stress is within normal limits. Gated Study: There are intact wall motion and wall thickening without hypokinetic or dyskinetic segm ents. The ejection fraction is calculated at 67%. RISK CATEGORY: Low (<1% Annual Motality Rate) CONCLUSION: 1. Left ventricle perfusion is within normal limits. 2. Normal left ventricle wall motion and ejection fraction. Electronically signed by: Ori Zuluaga MD 06/20/2018 11:36 AM EDT
[2018-06-20] MEDS ORDERED: PEG 3350/E-Lyte Soln 4000 ML Bottle PO ONE ×2 (12:00→13:00)
[2018-06-20] MEDS ORDERED: Sodium Chlor 0.9% Inj 500 ML IV.CONT ONE (12:15)
[2018-06-20] MEDS ORDERED: Metoprolol Tartrate 25 MG Tablet PO ONE (12:15)
[2018-06-20] MEDS ORDERED: Chlorhexidine Gluconate 2% 1 Pack (2 Cloths) TOPICAL ONE (12:15)
--- NOTE | 2018-06-20 12:24 | P.PNGS ---
Subjective Patient reports: feels better, pain is less, tolerating liquids well, bowel movement, afebrile Physical Exam Vital signs: Vital Signs 06/19/18 16:00 06/19/18 20:00 06/20/18 00:00 Temperature 98.2 F 97.9 F 98.3 F Pulse Rate 52 L 61 58 L Respiratory Rate 14 18 18 Blood Pressure 139/74 132/59 L 146/73 H Pulse Oximetry 91 L 95 95 06/20/18 04:00 06/20/18 08:00 06/20/18 12:00 Temperature 97.9 F 97.4 F L 98 F Pulse Rate 54 L 57 L 78 Respiratory Rate 18 18 16 Blood Pressure 137/70 142/74 H 185/90 H Pulse Oximetry 95 93 L 96 Intake & Output 06/19/18 06/20/18 06/20/18 18:59 06:59 18:59 Intake Total 1480 / 1480 1300 / 1300 200 / 200 Output Total 1000 / 1000 Balance 1480 / 1480 300 / 300 200 / 200 Weight 87.45 kg 92.1 kg Intake: IV 1000 / 1000 1100 / 1100 200 / 200 NS Inj 1,000 ML @ 100 mls/hr IV 800 / 800 1000 / 1000 .CONT .Q10H [facility] Rx#:[id number] Zosyn 4.5 GM Premix 4.5 gm In 200 / 200 100 / 100 200 / 200 100 ml @ 200 mls/hr IV.SIG Q6H [facility] Rx#:[id number] Oral 480 / 480 200 / 200 Output: Urine 1000 / 1000 Other: # Voids 3 Date of Last Bowel Movement 06/19/18 06/19/18 06/19/18 # Bowel Movements 1 Weight On Admission 87.45 kg - Routine Abdominal Exam Present: soft, normoactive bowel sounds Results - Labs 06/19/18 03:13 06/19/18 03:13 Laboratory Results - last 24 hr 06/19/18 15:52 Total Creatine Kinase 77 Troponin I Less than 0.02 L - Imaging Imaging: ITS Impressions Abdomen/Pelvis CT 06/18/18 00:00 CONCLUSION: 1. Severe but uncomplicated acute colonic diverticulitis of the hepatic flexure. 2. Enlarged and fatty infiltrated liver again noted. 3. Bilateral adrenal adenomas are stable. Myocardial Perfusion Scan Nuc Med 06/20/18 00:00 CONCLUSION: 1. Left ventricle perfusion is within normal limits. 2. Normal left ventricle wall motion and ejection fraction. Assessment and Plan - Assessment (1) Diverticulitis Code(s): K57.92 - Diverticulitis of intestine, part unspecified, without perforation or abscess without bleeding Status: Acute Plan: 58 year old female with uncomplicated diverticulitis wbc normal no fevers, pain stable -Clear liquids -Continue IVF -Continue Zosyn -EKG -Will let inflammation cool off over the weekend and plan for OR intervention Thursday -bowel prep tomorrow - Plan bowel prep today NPO p MN surgery tomorrow
--- NOTE | 2018-06-20 13:02 | P.PN ---
Subjective Interval history: Follow up for diverticulitis. Patient is currently doing well. No fever or chills. Denies any abdominal pain. General surgery is planning to operate on her tomorrow. Physical Exam Vital signs: Vital Signs 06/19/18 16:00 06/19/18 20:00 06/20/18 00:00 Temperature 98.2 F 97.9 F 98.3 F Pulse Rate 52 L 61 58 L Respiratory Rate 14 18 18 Blood Pressure 139/74 132/59 L 146/73 H Pulse Oximetry 91 L 95 95 06/20/18 04:00 06/20/18 08:00 06/20/18 12:00 Temperature 97.9 F 97.4 F L 98 F Pulse Rate 54 L 57 L 78 Respiratory Rate 18 18 16 Blood Pressure 137/70 142/74 H 185/90 H Pulse Oximetry 95 93 L 96 Intake & Output 06/19/18 06/20/18 06/20/18 18:59 06:59 18:59 Intake Total 1480 / 1480 1300 / 1300 200 / 200 Output Total 1000 / 1000 Balance 1480 / 1480 300 / 300 200 / 200 Weight 87.45 kg 92.1 kg Intake: IV 1000 / 1000 1100 / 1100 200 / 200 NS Inj 1,000 ML @ 100 mls/hr IV 800 / 800 1000 / 1000 .CONT .Q10H DAVID Rx#:[id number] Zosyn 4.5 GM Premix 4.5 gm In 200 / 200 100 / 100 200 / 200 100 ml @ 200 mls/hr IV.SIG Q6H DAVID Rx#:[id number] Oral 480 / 480 200 / 200 Output: Urine 1000 / 1000 Other: # Voids 3 Date of Last Bowel Movement 06/19/18 06/19/18 06/19/18 # Bowel Movements 1 Weight On Admission 87.45 kg Narrative: GENERAL: Alert, oriented x3, NAD. SKIN: Warm and dry. HEAD: Normocephalic. EYES: No scleral icterus. No injection or drainage. NECK: Supple, trachea midline. No JVD or lymphadenopathy. CARDIOVASCULAR: Regular rate and rhythm without murmurs, gallops, or rubs. RESPIRATORY: Breath sounds equal bilaterally. No accessory muscle use. GASTROINTESTINAL: Abdomen soft, nontender to palpation, nondistended. MUSCULOSKELETAL: No cyanosis, or edema. BACK: Nontender without obvious deformity. No CVA tenderness. Results - Labs CBC & Chem 7: 06/19/18 03:13 06/19/18 03:13 Laboratory Results - last 24 hr 06/19/18 15:52 Total Creatine Kinase 77 Troponin I Less than 0.02 L Microbiology 06/18/18 00:15 Clean Catch Urine Urine Culture - Final Escherichia coli Multidrug Resistant - Imaging Impressions Myocardial Perfusion Scan Nuc Med 06/20/18 00:00 CONCLUSION: 1. Left ventricle perfusion is within normal limits. 2. Normal left ventricle wall motion and ejection fraction. Assessment and Plan - Plan Ms. Ortiz is a 58-year-old female with a history of hypertension, COPD, diverticulitis who presents with a 3-day history of intermittent severe right upper quadrant pain radiating throughout the abdomen. Acute diverticulitis History of recurrent diverticulitis Significant nausea and pain uncontrolled -Lactic acid within normal limits. -CT with diverticulitis of the hepatic flexure -General surgery following, appreciate assistance. Continue IV fluids and IV Zosyn. -Cardiology evaluated for pre-op clearance. Lexiscan shows unremarkable LV function, wall motion. Normal EF. -Continue on IV Zosyn -Continue antiemetics as needed -pain management Asymptomatic bacteriuria -Continue on IV Zosyn. No need to treat but patient is already on Zosyn. Hypertension, chronic -continue on Norvasc 5mg daily. Will add clonidine PRN. History of COPD, not in acute exacerbation -Continue home medications -Duonebs as necessary Full code. Heparin on hold.
--- NOTE | 2018-06-20 16:51 | P.PN ---
Subjective Interval history: Pt doing well, no complaints. Physical Exam Vital signs: Vital Signs 06/19/18 20:00 06/20/18 00:00 06/20/18 04:00 Temperature 97.9 F 98.3 F 97.9 F Pulse Rate 61 58 L 54 L Respiratory Rate 18 18 18 Blood Pressure 132/59 L 146/73 H 137/70 Pulse Oximetry 95 95 95 06/20/18 08:00 06/20/18 12:00 Temperature 97.4 F L 98 F Pulse Rate 57 L 78 Respiratory Rate 18 16 Blood Pressure 142/74 H 185/90 H Pulse Oximetry 93 L 96 Intake & Output 06/19/18 06/20/18 06/20/18 18:59 06:59 18:59 Intake Total 1480 / 1480 1300 / 1300 200 / 200 Output Total 1000 / 1000 Balance 1480 / 1480 300 / 300 200 / 200 Weight 87.45 kg 92.1 kg Intake: IV 1000 / 1000 1100 / 1100 200 / 200 NS Inj 1,000 ML @ 100 mls/hr IV 800 / 800 1000 / 1000 .CONT .Q10H DAVID Rx#:[id number] Zosyn 4.5 GM Premix 4.5 gm In 200 / 200 100 / 100 200 / 200 100 ml @ 200 mls/hr IV.SIG Q6H DAVID Rx#:[id number] Oral 480 / 480 200 / 200 Output: Urine 1000 / 1000 Other: # Voids 3 Date of Last Bowel Movement 06/19/18 06/19/18 06/19/18 # Bowel Movements 1 Weight On Admission 87.45 kg - Constitutional no acute distress - Routine HEENT Exam Head: Present: normocephalic Eye: Present: EOMI ENT: Present: mucous membranes moist - Routine Neck Exam Present: supple - Routine Respiratory Exam Present: CTA bilaterally. Absent: accessory muscle use - Routine Cardiovascular Exam Present: RRR. Absent: murmur - Routine Extremities Exam Absent: edema Results - Labs CBC & Chem 7: 06/19/18 03:13 06/19/18 03:13 Laboratory Results - last 24 hr 06/19/18 15:52 Total Creatine Kinase 77 Troponin I Less than 0.02 L Microbiology 06/18/18 00:15 Clean Catch Urine Urine Culture - Final Escherichia coli Multidrug Resistant - Imaging Impressions Myocardial Perfusion Scan Nuc Med 06/20/18 00:00 CONCLUSION: 1. Left ventricle perfusion is within normal limits. 2. Normal left ventricle wall motion and ejection fraction. Assessment and Plan - Plan Chest pain/preop eval. Symptoms likely GI related; Given non-ischemic nuc stress she is cleared from a cardiac standpoint, will sign off, please call with questions.
[2018-06-21] MEDS: Piperacil/Tazo 4.5 GM Premix 4.5 GM/100 ML BAG IV.SIG SCH ×3 (00:22→05:24)
[2018-06-21] MEDS: Sod Chloride 0.9% Inj 1,000 ML IV.CONT SCH (04:20)
[2018-06-21] MEDS: amLODIPine 5 MG Tablet PO SCH (08:35)
[2018-06-21 08:58] VITALS: BP 158/79; PULSE 51; RESP 16; TEMP 98.4; O2SAT 95
--- NOTE | 2018-06-21 10:35 | P.PN ---
Subjective Interval history: Patient's pain is much better. Reports that she passed some peas and has had significant resolution of her abdominal pain. Reports that she has some bills that are nearly emergent and she needs to get home to take care of things. Physical Exam Vital signs: Vital Signs 06/20/18 12:00 06/20/18 16:00 06/20/18 16:32 Temperature 98 F 97.3 F L Pulse Rate 78 65 Respiratory Rate 16 16 18 Blood Pressure 185/90 H 142/83 H Pulse Oximetry 96 94 L 06/20/18 20:00 06/21/18 00:00 06/21/18 04:00 Temperature 98.2 F 97.3 F L 97.6 F Pulse Rate 57 L 57 L 62 Respiratory Rate 20 20 20 Blood Pressure 145/71 H 139/87 177/79 H Pulse Oximetry 95 94 L 98 06/21/18 08:00 Temperature 98.4 F Pulse Rate 51 L Respiratory Rate 16 Blood Pressure 158/79 H Pulse Oximetry 95 Intake & Output 06/20/18 06/21/18 06/21/18 18:59 06:59 18:59 Intake Total 2700 / 2700 100 / 100 100 / 100 Balance 2700 / 2700 100 / 100 100 / 100 Weight 87.45 kg Intake: IV 300 / 300 100 / 100 100 / 100 Zosyn 4.5 GM Premix 4.5 gm In 300 / 300 100 / 100 100 / 100 100 ml @ 200 mls/hr IV.SIG Q6H DAVID Rx#:[id number] Oral 2400 / 2400 Other: # Voids 12 3 Date of Last Bowel Movement 06/20/18 06/20/18 06/21/18 # Bowel Movements 4 1 - Constitutional no acute distress - Routine Respiratory Exam Present: CTA bilaterally - Routine Cardiovascular Exam Present: RRR - Routine Abdominal Exam Present: soft, tenderness (Very minimal in the epigastrium) Results - Labs CBC & Chem 7: 06/19/18 03:13 06/19/18 03:13 Laboratory Results - last 24 hr 06/21/18 05:49 Blood Type B Positive Blood Type Recheck Required Antibody Screen Negative Microbiology 06/18/18 00:15 Clean Catch Urine Urine Culture - Final Escherichia coli Multidrug Resistant - Imaging Impressions Myocardial Perfusion Scan Nuc Med 06/20/18 00:00 CONCLUSION: 1. Left ventricle perfusion is within normal limits. 2. Normal left ventricle wall motion and ejection fraction. Assessment and Plan - Assessment (1) Diverticulitis Code(s): K57.92 - Status: Acute Plan: Patient has asked whether she might be able to take care of this electively. I indicated that she needs to stay on a low residue diet and can be discharged on p.o. antibiotics. This is reasonable as she has significant personal business to take care of in an urgent fashion. I explained to her to contact us or return to the hospital if she redevelops severe pain. She agrees to comply. I will see her in the office next week after she completes a course of p.o. antibiotics to set up elective surgery. She is agreeable with this. - Attending Attestation I attest that I had a [id number] encounter with the patient on the same day, and personally performed and documented my assessment and findings in the medical record. The following services were provided during this hospital visit: Chart data review, vital sign assessments/reviewing monitor data Review of consultation notes if present Medication orders/review and/or management Ordering and/or reviewing lab tests Ordering and/or interpreting/reviewing x-rays and/or diagnostic studies Care of the patient and discussion of the patient with the care team Documentation time To help prompt me to consider important information that might be impacting today's encounter and assessment, Information from prior notes written by myself or my colleagues may have been "brought forward/copy and pasted" into today's note.
--- NOTE | 2018-06-21 11:06 | P.DS ---
Date of admission: 06/19/18 07:29 Primary care physician: Chris Gonzalez Attending physician on discharge: Samantha Moran Anticipated date of discharge: 06/21/18 Brief History from admission: 58-year-old female with a history of hypertension, COPD, diverticulitis who presents with a 3-day history of intermittent severe right upper quadrant pain radiating throughout the abdomen. She reports subjective fevers, nausea without any vomiting. Denies any chest pain. She does say that taking a deep breath makes her abdomen hurt, and has been a little difficult to breathe due to this DS: Medications - Discharge Medications Prescriptions: ciprofloxacin HCl [Cipro] 500 mg PO Q12H #14 tab metronidazole [Flagyl] 500 mg PO TID #21 tab DS: Summary Hospital Course: Ms. Ortiz is a 58-year-old female with a history of hypertension, COPD, diverticulitis who presents with a 3-day history of intermittent severe right upper quadrant pain radiating throughout the abdomen. Acute diverticulitis History of recurrent diverticulitis Significant nausea and pain uncontrolled -Lactic acid within normal limits. -CT with diverticulitis of the hepatic flexure -General surgery following, appreciate assistance. Continued IV fluids and IV Zosyn. -Cardiology evaluated for pre-op clearance. Lexiscan shows unremarkable LV function, wall motion. Normal EF. -Continue on IV Zosyn -Continue antiemetics as needed -pain management Asymptomatic bacteriuria -Continue on IV Zosyn. No need to treat but patient is already on Zosyn. Hypertension, chronic -continue on Norvasc 5mg daily. Will add clonidine PRN. History of COPD, not in acute exacerbation -Continue home medications -Duonebs as necessary 06/21/2018: Patient discussed with her surgeon regarding going home today. I discussed with surgeon later on. Surgery cleared for discharge. Surgery recommends close follow-up with your office and Cipro and Flagyl for 1 week. Surgery also recommended low residue diet. Patient was subsequently discharged home. - Time Spent with Patient Total time spent providing and/or coordinating discharge services: Less than 30 minutes - Quality: VTE Deep Vein Thrombosis/Pulmonary Embolism Present on Admission: No Exam Vital signs: Vital Signs 06/20/18 12:00 06/20/18 16:00 06/20/18 16:32 Temperature 98 F 97.3 F L Pulse Rate 78 65 Respiratory Rate 16 16 18 Blood Pressure 185/90 H 142/83 H Pulse Oximetry 96 94 L 06/20/18 20:00 06/21/18 00:00 06/21/18 04:00 Temperature 98.2 F 97.3 F L 97.6 F Pulse Rate 57 L 57 L 62 Respiratory Rate 20 20 20 Blood Pressure 145/71 H 139/87 177/79 H Pulse Oximetry 95 94 L 98 06/21/18 08:00 Temperature 98.4 F Pulse Rate 51 L Respiratory Rate 16 Blood Pressure 158/79 H Pulse Oximetry 95 Intake & Output 06/20/18 06/21/18 06/21/18 18:59 06:59 18:59 Intake Total 2700 / 2700 100 / 100 100 / 100 Balance 2700 / 2700 100 / 100 100 / 100 Weight 87.45 kg Intake: IV 300 / 300 100 / 100 100 / 100 Zosyn 4.5 GM Premix 4.5 gm In 300 / 300 100 / 100 100 / 100 100 ml @ 200 mls/hr IV.SIG Q6H DAVID Rx#:[id number] Oral 2400 / 2400 Other: # Voids 12 3 Date of Last Bowel Movement 06/20/18 06/20/18 06/21/18 # Bowel Movements 4 1 Narrative: GENERAL: Alert, oriented x3, NAD. SKIN: Warm and dry. HEAD: Normocephalic. EYES: No scleral icterus. No injection or drainage. NECK: Supple, trachea midline. No JVD or lymphadenopathy. CARDIOVASCULAR: Regular rate and rhythm without murmurs, gallops, or rubs. RESPIRATORY: Breath sounds equal bilaterally. No accessory muscle use. GASTROINTESTINAL: Abdomen soft, nontender to palpation, nondistended. MUSCULOSKELETAL: No cyanosis, or edema. BACK: Nontender without obvious deformity. No CVA tenderness. Results Procedures completed during hospitalization: Nuclear stress test CONCLUSION: 1. Left ventricle perfusion is within normal limits. 2. Normal left ventricle wall motion and ejection fraction. Labs on day of discharge: Labs from last 24 hours 06/21/18 05:49 Blood Type B Positive Blood Type Recheck Required Antibody Screen Negative - Impressions ITS Impressions Abdomen/Pelvis CT 06/18/18 00:00 CONCLUSION: 1. Severe but uncomplicated acute colonic diverticulitis of the hepatic flexure. 2. Enlarged and fatty infiltrated liver again noted. 3. Bilateral adrenal adenomas are stable. Myocardial Perfusion Scan Nuc Med 06/20/18 00:00 CONCLUSION: 1. Left ventricle perfusion is within normal limits. 2. Normal left ventricle wall motion and ejection fraction. Discharge Plan - Discharge Disposition Patient Disposition: 01 Discharge Home - Discharge Condition Condition: Stable - Discharge Order Discharge Orders: Discharge Order (Routine); Ordered 06/21/18 Ordered By: Samantha Moran - Discharge Details Anticipated Discharge Date: 06/21/18 Discharge Comment: Discussed with Dr. Hooper. D/C patient home. - Physicians Team Primary Care Provider: Chris Gonzalez Attending Provider: Samantha Moran Other Providers: Nima Hooper MD ; Eric Noel MD
== END 2018-06-21 11:27 | disposition home or self-care (01) ==
LOC: NEDA 20:34 → NEPC 20:34 → NEPFCDU 06-18 05:37 → N06 06-19 12:58
PROVIDERS: ADMIT Hospitalist; ATTEND Hospitalist